=== PATIENT | female | born 1950 | race Caucasian/White ===

== ENCOUNTER 2017-11-04 09:36 | Outpatient (RCR) | payer MEDICARE, BC, SELFPAY ==
--- NOTE | 2017-11-04 09:30 | PTDS_ITS ---
Date: November 04, 2017 Referring: Carlos Salvador MD Diagnosis: L TKA, partial MCL repair 08/25/17 Treatment dates: 09/04/17 to 11/04/17 Subjective: History of Present Illness: Melita states that her knees have been feeling good. She has been trying to resume walking, stating she is able to go about a 10th of a mild before she gets a feeling of swelling in her knees. She feels as though her knees have come a long way and they really do not restrict her outside of long distance walking. She does have complaints of continued low back pain and increasing neck pain, which she will be meeting with her PCP about next week. She is now able to reciprocally manage stairs. Her standing time is limited by low back and neck pain. STANDARDIZED MEASURE: Her LEFS shows a 41% deficit. Objective: Posture: In static standing, the patient maintains wide base of support, no assistive device. Gait: Mild antalgia with contralateral trunk lean during swing phase. No assistive device for ambulation. Good heel toe mechanics. Palpation: Patient has well healed incisions over the anterior aspects of both knees. No increased temperature or edema noted. She does have tenderness to palpation over the lateral joint line bilaterally. ROM: Patient tolerated 0 to 130 degrees of flexion bilaterally without pain. Strength: Hip flexion is 5/5 bilaterally, quads are 5/5 bilaterally, hamstrings 4+/5 bilaterally. Ankle dorsiflexion is 5/5 bilaterally. Treatment: Today's session consisted of brief re-evaluation followed by review of HEP. We reviewed pelvic tilt exercises where the patient does require verbal and tactile cues for appropriate completion and avoidance of ame jim maneuver. Introduce hook lying marching for core stabilization and instructed patient in transverse abdominal activation throughout her close chain strengthening activities. She is also instructed in chin tuck exercises in seated position, again requiring verbal and tactile cues. Treatment Time: Therapeutic Procedure [id number]: 30 mins Assessment: Patient is a 67 year old female referred for PT services with diagnosis of L knee OA and MCL tear, now 9 weeks s/p L TKA with partial MCL repair. She is also about 6 months s/p R TKA. She has made excellent progress with her knees, now with full ROM and improved functional strength, however continues to have limitations in her mobility related to ongoing neck and back pain, which has been chronic issues for her. She has made significant gains and has met rehab goals, and is now appropriate for transition to an independent self management program with strong encouragement to continue with HEP with addition of core and cervical stabilization activities. G-Codes: The patient has continued limitations in the category of mobility: walking and moving around at discharge status of [id number] based on projected goal status of [id number] (these are based on LEFS score of 41% deficit) ST: Patient able to demonstrate community distance ambulation with least restrictive device (MET) 2: Household ambulation without assistive device (MET) LT: Reciprocal stair management. (MET) 2: Improve overall function as evidenced by LEFS score indicating less than 20 % deficit. (NOT MET) 3: Patient able to resume work duties (Continued difficulty with prolonged standing, although this is related to neck and back pain vs knee pain). Plan: Patient discharged with home exercise program. Patient is encouraged to follow up with PCP regarding ongoing neck pain. SS/dl *Dr. Salvador, please sign this discharge summary if you are in agreement with this plan. cc: Carlos Salvador MD
== END 2017-11-13 23:59 | disposition home or self-care (01) ==
LOC: PT 09:36
PROVIDERS: PCP Nurse Practitioner Family; Referring Provider Student in an Organized Health Care Education/Training Program; Visit Provider Student in an Organized Health Care Education/Training Program
DX: Z47.1 Aftercare following joint replacement surgery (principal); Z96.652 Presence of left artificial knee joint
CPT/HCPCS: 97110

== ENCOUNTER → 2017-11-18 12:57 | Outpatient (BNVA) | payer MEDICARE, BC, SELFPAY | PROVIDERS: PCP Nurse Practitioner Family; Visit Provider Student in an Organized Health Care Education/Training Program | DX: Z47.1 Aftercare following joint replacement surgery (principal); Z96.652 Presence of left artificial knee joint | CPT/HCPCS: NC ==

== ENCOUNTER 2017-12-22 18:21 | Outpatient (REF) | payer MEDICARE, BC, SELFPAY ==
[2017-12-22 22:17] LABS: TSH (W/Ref FT4) 0.68 uIU/mL (0.358-3.74); Vitamin B12 722 pg/mL (193-986)
== END 2017-12-22 18:41 ==
LOC: NCHCN 18:21
PROVIDERS: PCP Nurse Practitioner Family; Visit Provider Nurse Practitioner Family
DX: F41.8 Other specified anxiety disorders (principal)
CPT/HCPCS: 82607; 83735; 84443

== ENCOUNTER 2017-12-29 09:09 | Outpatient (CLI) | payer MEDICARE, BC, SELFPAY ==
[2017-12-29 14:38] LABS: HCT 39.2 % (36.0-46.0); HGB 12.7 g/dL (12.0-15.5); Mean Corp. HGB Concentration 32.4 g/dL (32.0-36.0); Mean Corpuscular Hemoglobin 29.1 pg (27.0-33.0); Mean Corpuscular Volume 89.7 fL (80-95); Mean Platelet Volume 11.8 fL (8.0-11.0); Platelet Count 309 x1000/uL (130-400); RBC 4.37 m/cumm (4.00-5.20); RBC Distribution Width 13.5 % (11.7-14.6); White Blood Cell Count 6.62 k/cumm (4.4-10.8)
[2017-12-29 15:20] LABS: ESR 27 MM/HR (0-30)
[2017-12-29 16:01] LABS: ALT 37 U/L (12-78); AST 26 U/L (15-37); Albumin 3.8 g/dL (3.4-5.0); Alkaline Phosphatase 93 U/L (46-116); Anion Gap 13.6 mmol/L (3-11); BUN 16 mg/dL (7-18); Bilirubin, Total 0.5 mg/dL (0.2-1.0); C-Reactive Protein 0.37 mg/dL (0.0-0.3); CO2 22.4 mmol/L (21.0-32.0); CREATININE 1.22 mg/dL (0.55-1.02); Chloride 105 mmol/L (98-107); Estimated GFR 43.83 (mL/min/1.73m2); Glucose 100 mg/dL (70-100); Potassium 4.4 mmol/L (3.5-5.1); Sodium 141 mmol/L (136-145); Total Protein 6.9 g/dL (6.4-8.2)
[2017-12-30 12:57] LABS: Calcium 9.5 mg/dL (8.5-10.1)
== END 2017-12-29 09:29 ==
PROVIDERS: PCP Nurse Practitioner Family; Visit Provider Internal Medicine Rheumatology
DX: M47.899 Other spondylosis, site unspecified (principal); Z79.1 Long term (current) use of non-steroidal anti-inflammatories (NSAID)
CPT/HCPCS: 80053; 85027; 85652; 86140

== ENCOUNTER 2018-02-01 10:10 | Outpatient (CLI) | payer MEDICARE, BC, SELFPAY ==
[2018-02-01 11:53] LABS: CREATININE 0.74 mg/dL (0.55-1.02)
== END 2018-02-01 10:30 ==
PROVIDERS: PCP Nurse Practitioner Family; Visit Provider Internal Medicine Rheumatology
DX: M47.899 Other spondylosis, site unspecified (principal); Z79.1 Long term (current) use of non-steroidal anti-inflammatories (NSAID)
CPT/HCPCS: 36415; 82565

== ENCOUNTER → 2018-02-17 12:45 | Outpatient (BNVA) | payer MEDICARE, BC, SELFPAY | PROVIDERS: PCP Nurse Practitioner Family; Referring Provider Nurse Practitioner Family; Visit Provider Student in an Organized Health Care Education/Training Program | DX: Z47.1 Aftercare following joint replacement surgery (principal); Z96.653 Presence of artificial knee joint, bilateral; M76.31 Iliotibial band syndrome, right leg; M76.32 Iliotibial band syndrome, left leg | CPT/HCPCS: 99212; 99213 ==

== ENCOUNTER 2018-03-25 01:20 | Outpatient (CLI) | payer MEDICARE, BC, SELFPAY ==
[2018-03-25 15:39] LABS: ALT 21 U/L (12-78); AST 18 U/L (15-37); Albumin 3.6 g/dL (3.4-5.0); Alkaline Phosphatase 93 U/L (46-116); Anion Gap 11.2 mmol/L (3-11); BUN 34 mg/dL (7-18); Bilirubin, Total 0.5 mg/dL (0.2-1.0); CO2 24.8 mmol/L (21.0-32.0); CREATININE 0.97 mg/dL (0.55-1.02); Chloride 106 mmol/L (98-107); Estimated GFR 56.94 (mL/min/1.73m2); Glucose 94 mg/dL (70-100); Sodium 142 mmol/L (136-145); Total Protein 7.1 g/dL (6.4-8.2)
[2018-03-25 15:45] LABS: Abs Immature Grans 0.01 k/cumm (0.0-0.09); Absolute Basophil Count 0.04 k/cumm (0.0-0.2); Absolute Eosinophil Count 0.38 k/cumm (0.0-0.7); Absolute Lymphocyte Count 2.19 k/cumm (1.2-3.4); Absolute Monocyte Count 0.68 k/cumm (0.11-0.7); Absolute Neutrophil Count 5.12 k/cumm (1.2-6.7); Basophils % 0.5; Eosinophils % 4.5; HCT 36.5 % (36.0-46.0); HGB 11.7 g/dL (12.0-15.5); Immature Grans % 0.1; Mean Corp. HGB Concentration 32.1 g/dL (32.0-36.0); Mean Corpuscular Hemoglobin 29.3 pg (27.0-33.0); Mean Corpuscular Volume 91.3 fL (80-95); Mean Platelet Volume 10.9 fL (8.0-11.0); Monocytes % 8.1; Neutrophils % 60.8; Platelet Count 256 x1000/uL (130-400); RBC Distribution Width 13.5 % (11.7-14.6); White Blood Cell Count 8.42 k/cumm (4.4-10.8)
== END 2018-03-25 01:40 ==
PROVIDERS: PCP Nurse Practitioner Family; Visit Provider Internal Medicine Medical Oncology
DX: C50.211 Malignant neoplasm of upper-inner quadrant of right female breast (principal); Z17.0 Estrogen receptor positive status [ER+]
CPT/HCPCS: 36415; 80053; 85025

== ENCOUNTER 2018-07-09 02:48 | Outpatient (CLI) | payer MEDICARE, BC, SELFPAY ==
[2018-07-09 08:37] LABS: HCT 38.1 % (36.0-46.0); HGB 12.1 g/dL (12.0-15.5); Mean Corp. HGB Concentration 31.8 g/dL (32.0-36.0); Mean Corpuscular Hemoglobin 29.2 pg (27.0-33.0); Mean Corpuscular Volume 91.8 fL (80-95); Mean Platelet Volume 10.3 fL (8.0-11.0); Platelet Count 207 x1000/uL (130-400); RBC 4.15 m/cumm (4.00-5.20); RBC Distribution Width 13.4 % (11.7-14.6); White Blood Cell Count 7.79 k/cumm (4.4-10.8)
[2018-07-09 08:49] LABS: ALT 22 U/L (12-78); AST 17 U/L (15-37); Albumin 3.4 g/dL (3.4-5.0); Alkaline Phosphatase 91 U/L (46-116); Anion Gap 10.9 mmol/L (3-11); BUN 17 mg/dL (7-18); Bilirubin, Total 0.4 mg/dL (0.2-1.0); C-Reactive Protein 5.82 mg/dL (0.0-0.3); CO2 24.1 mmol/L (21.0-32.0); CREATININE 0.69 mg/dL (0.55-1.02); Calcium 8.8 mg/dL (8.5-10.1); Chloride 106 mmol/L (98-107); Glucose 109 mg/dL (70-100); Potassium 4.1 mmol/L (3.5-5.1); Sodium 141 mmol/L (136-145); Total Protein 7.3 g/dL (6.4-8.2)
[2018-07-09 10:49] LABS: ESR 48 MM/HR (0-30)
== END 2018-07-09 03:08 ==
PROVIDERS: PCP Nurse Practitioner Family; Visit Provider Internal Medicine Rheumatology
DX: M47.899 Other spondylosis, site unspecified (principal); Z79.1 Long term (current) use of non-steroidal anti-inflammatories (NSAID)
CPT/HCPCS: 36415; 80053; 85027; 85652; 86140

== ENCOUNTER 2018-08-18 13:08 | Outpatient (CLI) | payer MEDICARE, BC, SELFPAY ==
--- NOTE | 2018-08-18 13:03 | DI.RAD_ITS ---
SYMPTOMS/DIAGNOSIS: BILATERAL TOTAL KNEE ARTHROPLASTY RIGHT KNEE: Two views. Comparison is 04/20/17. There are stable postsurgical changes of a right total knee replacement. No evidence of hardware failure is seen. The bones are intact. The soft tissues are unremarkable. LEFT KNEE: Two views. Comparison is 09/11/17. There are again seen postsurgical changes of a left total knee replacement. No evidence of hardware failure is seen. The bones are intact and normally mineralized. The soft tissues are grossly unremarkable.
== END 2018-08-18 13:28 ==
PROVIDERS: PCP Nurse Practitioner Family; Referring Provider Nurse Practitioner Family; Visit Provider Student in an Organized Health Care Education/Training Program
DX: M17.0 Bilateral primary osteoarthritis of knee (principal); Z96.653 Presence of artificial knee joint, bilateral
CPT/HCPCS: 99213; 73560

== ENCOUNTER 2018-11-09 16:42 | Outpatient (REF) | payer MEDICARE, BC, SELFPAY | END 2018-11-09 17:02 | LOC: NCHCN 16:42 | PROVIDERS: PCP Nurse Practitioner Family; Visit Provider Nurse Practitioner Family | DX: N39.0 Urinary tract infection, site not specified (principal) | CPT/HCPCS: 87077; 87086; 87186 ==

== ENCOUNTER 2018-11-19 03:47 | Outpatient (CLI) | payer MEDICARE, BC, SELFPAY ==
[2018-11-19 10:19] LABS: Abs Immature Grans 0.02 k/cumm (0.0-0.09); Absolute Basophil Count 0.04 k/cumm (0.0-0.2); Absolute Lymphocyte Count 1.74 k/cumm (1.2-3.4); Absolute Monocyte Count 0.37 k/cumm (0.11-0.7); Absolute Neutrophil Count 3.69 k/cumm (1.2-6.7); Basophils % 0.6; Eosinophils % 4.9; HCT 39.5 % (36.0-46.0); HGB 12.9 g/dL (12.0-15.5); Immature Grans % 0.3; Lymphocytes % 28.2; Mean Corp. HGB Concentration 32.7 g/dL (32.0-36.0); Mean Corpuscular Hemoglobin 29.6 pg (27.0-33.0); Mean Corpuscular Volume 90.6 fL (80-95); Mean Platelet Volume 10.4 fL (8.0-11.0); Platelet Count 277 x1000/uL (130-400); RBC 4.36 m/cumm (4.00-5.20); RBC Distribution Width 12.9 % (11.7-14.6); White Blood Cell Count 6.16 k/cumm (4.4-10.8)
[2018-11-19 11:16] LABS: C-Reactive Protein 0.47 mg/dL (0.0-0.3); ESR 26 mm/hr (0-30)
== END 2018-11-19 04:07 ==
PROVIDERS: PCP Nurse Practitioner Family; Visit Provider Internal Medicine
DX: M19.90 Unspecified osteoarthritis, unspecified site (principal); M06.022 Rheumatoid arthritis without rheumatoid factor, left elbow; M25.60 Stiffness of unspecified joint, not elsewhere classified; M54.5 Low back pain; G89.29 Other chronic pain; Z79.899 Other long term (current) drug therapy
CPT/HCPCS: 36415; 85652; 85025; 86140

== ENCOUNTER 2019-02-21 14:53 | Outpatient (REF) | payer MEDICARE, BC, SELFPAY ==
[2019-02-21 15:20] LABS: Abs Immature Grans 0.02 k/cumm (0.0-0.09); Absolute Basophil Count 0.04 k/cumm (0.0-0.2); Absolute Eosinophil Count 0.26 k/cumm (0.0-0.7); Absolute Lymphocyte Count 1.72 k/cumm (1.2-3.4); Absolute Monocyte Count 0.45 k/cumm (0.11-0.7); Absolute Neutrophil Count 5.34 k/cumm (1.2-6.7); Basophils % 0.5; Eosinophils % 3.3; HGB 13.3 g/dL (12.0-15.5); Immature Grans % 0.3; Mean Corp. HGB Concentration 32.4 g/dL (32.0-36.0); Mean Corpuscular Hemoglobin 29.7 pg (27.0-33.0); Mean Corpuscular Volume 91.5 fL (80-95); Mean Platelet Volume 11.4 fL (8.0-11.0); Monocytes % 5.7; Neutrophils % 68.2; Platelet Count 280 x1000/uL (130-400); RBC 4.48 m/cumm (4.00-5.20); RBC Distribution Width 12.7 % (11.7-14.6); White Blood Cell Count 7.83 k/cumm (4.4-10.8)
[2019-02-21 15:55] LABS: ALT 20 U/L (14-59); AST 16 U/L (15-37); Albumin 3.9 g/dL (3.4-5.0); Alkaline Phosphatase 106 U/L (46-116); Anion Gap 11.2 mmol/L (3-11); BUN 20 mg/dL (7-18); Bilirubin, Total 0.5 mg/dL (0.2-1.0); CO2 24.8 mmol/L (21.0-32.0); CREATININE 0.69 mg/dL (0.55-1.02); Calcium 9.5 mg/dL (8.5-10.1); Chloride 105 mmol/L (98-107); Glucose 95 mg/dL (74-106); Potassium 4.3 mmol/L (3.5-5.1); Sodium 141 mmol/L (136-145); Total Protein 7.2 g/dL (6.4-8.2); Vitamin B12 569 pg/mL (193-986)
[2019-02-21 15:56] LABS: Hemoglobin A1C 5.3 % (4.5-6.2)
[2019-02-21 16:02] LABS: C-Reactive Protein 0.44 mg/dL (0.0-0.3)
== END 2019-02-21 15:13 ==
LOC: NCHCN 14:53
PROVIDERS: PCP Nurse Practitioner Family; Visit Provider Nurse Practitioner Family
DX: R73.01 Impaired fasting glucose (principal); R00.2 Palpitations; K29.70 Gastritis, unspecified, without bleeding; F41.8 Other specified anxiety disorders; R79.89 Other specified abnormal findings of blood chemistry; I80.3 Phlebitis and thrombophlebitis of lower extremities, unspecified; M19.90 Unspecified osteoarthritis, unspecified site
CPT/HCPCS: 80053; 85652; 82607; 83036; 83735; 85025; 86140

== ENCOUNTER 2019-02-23 06:28 | Outpatient (CLI) | payer MEDICARE, BC, SELFPAY ==
[2019-02-23 18:10] LABS: ESR 32 mm/hr (0-30)
== END 2019-02-23 06:48 ==
PROVIDERS: PCP Nurse Practitioner Family; Visit Provider Nurse Practitioner Family
DX: M19.90 Unspecified osteoarthritis, unspecified site (principal); R00.2 Palpitations; I80.3 Phlebitis and thrombophlebitis of lower extremities, unspecified; R79.89 Other specified abnormal findings of blood chemistry; R73.01 Impaired fasting glucose
CPT/HCPCS: 36415; 85652

== ENCOUNTER 2019-08-24 00:59 | Outpatient (CLI) | payer MEDICARE, BC, SELFPAY ==
--- NOTE | 2019-08-24 11:07 | DI.RAD_ITS ---
EXAM: XR LUMBAR SPINE COMPLETE CLINICAL HISTORY: ACUTE BACK PAIN,M54.89. TECHNIQUE: 2D digital imaging was performed. COMPARISON: No exams were available for comparison FINDINGS: There are 5 lumbar type vertebral bodies. No spondylolysis or spondylolisthesis is seen. There is m ild disc space narrowing at L4-L5. Facet arthropathy is seen in throughout the lumbar spine. No acu te fractures or subluxations are present. Mild osteopenia. There are surgical clips in the right up per quadrant of the abdomen. IMPRESSION: [id number] degenerative changes in the lumbar spine. DATA REPOSITORY: RADIATION DOSE DELIVERED:
--- NOTE | 2019-08-24 11:08 | DI.RAD_ITS ---
EXAM: XR THORACIC SPINE COMPLETE CLINICAL HISTORY: ACUTE BACK PAIN, M54.89. TECHNIQUE: 2D digital imaging was performed. COMPARISON: No exams were available for comparison FINDINGS: No acute fractures or subluxations are seen in the thoracic spine. Degenerative changes are present throughout the thoracic spine characterized by disc space narrowing and endplate osteophytes. The silvia george appear mildly osteopenic. The paraspinal lines are unremarkable. Visualized lungs are clear. T here is a very mild S-type scoliotic curvature of the thoracic spine. IMPRESSION: Degenerative changes seen in the thoracic spine. DATA REPOSITORY: RADIATION DOSE DELIVERED:
== END 2019-08-24 01:19 ==
PROVIDERS: PCP Nurse Practitioner Family; Visit Provider Nurse Practitioner Family
DX: M54.89 Other dorsalgia (principal); M51.34 Other intervertebral disc degeneration, thoracic region; M47.814 Spondylosis without myelopathy or radiculopathy, thoracic region; M54.5 Low back pain; M51.36 Other intervertebral disc degeneration, lumbar region; M85.88 Other specified disorders of bone density and structure, other site
CPT/HCPCS: 72072; 72110

== ENCOUNTER 2019-10-10 16:42 | Outpatient (REF) | payer MEDICARE, BC, SELFPAY | END 2019-10-10 17:02 | LOC: NCHCN 16:42 | PROVIDERS: PCP Nurse Practitioner Family; Visit Provider Nurse Practitioner Family | DX: R30.0 Dysuria (principal) | CPT/HCPCS: 87077; 87086; 87186 ==

== ENCOUNTER 2020-02-20 16:21 | Outpatient (REF) | payer MEDICARE, BC, SELFPAY ==
[2020-02-20 21:58] LABS: Abs Immature Grans 0.01 10^3/uL (0.0-0.06); Absolute Basophil Count 0.05 10^3/uL (0.0-0.2); Absolute Eosinophil Count 0.28 10^3/uL (0.0-0.7); Absolute Lymphocyte Count 1.87 10^3/uL (1.2-3.4); Absolute Monocyte Count 0.36 10^3/uL (0.1-0.8); Absolute Neutrophil Count 5.13 10^3/uL (1.2-6.7); Basophils % 0.6; Eosinophils % 3.6; HCT 40.3 % (36.0-46.0); HGB 12.8 g/dL (11.2-15.7); Immature Grans % 0.1; Lymphocytes % 24.3; MCH 29.5 pg (27.0-33.0); MCHC 31.8 % (32.0-36.0); MCV 92.9 fL (80-95); Monocytes % 4.7; Neutrophils % 66.7; Nucleated RBC 0 %; Platelet Count 246 10^3/uL (130-400); RBC 4.34 10^6/uL (3.93-5.22); RDW 12.7 % (11.7-14.6); RDW-SD 43.5 fL
[2020-02-20 22:20] LABS: Hemoglobin A1C 5.2 % (<5.7)
[2020-02-20 22:46] LABS: ESR 19 mm/hr (0-30)
[2020-02-20 22:58] LABS: ALT 22 U/L (14-59); AST 21 U/L (15-37); Alkaline Phosphatase 104 U/L (46-116); Anion Gap 11.2 mmol/L (3-11); BUN 11 mg/dL (7-18); Bilirubin, Total 0.5 mg/dL (0.2-1.0); CO2 23.8 mmol/L (21.0-32.0); CREATININE 0.88 mg/dL (0.55-1.02); Calcium 9.7 mg/dL (8.5-10.1); Chloride 106 mmol/L (98-107); Glucose 85 mg/dL (74-106); Magnesium 2.1 mg/dL (1.8-2.4); Potassium 4.2 mmol/L (3.5-5.1); Sodium 141 mmol/L (136-145); Vitamin B12 788 pg/mL (193-986)
== END 2020-02-20 16:41 ==
LOC: NCHCN 16:21
PROVIDERS: PCP Nurse Practitioner Family; Visit Provider Nurse Practitioner Family
DX: R73.03 Prediabetes (principal); R00.2 Palpitations; K29.70 Gastritis, unspecified, without bleeding; M85.80 Other specified disorders of bone density and structure, unspecified site; G89.29 Other chronic pain; E66.9 Obesity, unspecified
CPT/HCPCS: 80053; 85652; 82607; 83036; 83735; 85025; 86140

== ENCOUNTER 2020-09-24 14:56 | Outpatient (REF) | payer MEDICARE, BC, SELFPAY ==
[2020-09-24 21:43] LABS: Abs Immature Grans 0.01 10^3/uL (0.0-0.06); Absolute Basophil Count 0.06 10^3/uL (0.0-0.2); Absolute Eosinophil Count 0.35 10^3/uL (0.0-0.7); Absolute Lymphocyte Count 2.14 10^3/uL (1.2-3.4); Absolute Neutrophil Count 3.74 10^3/uL (1.2-6.7); Basophils % 0.9; Eosinophils % 5.2; HCT 38.1 % (36.0-46.0); HGB 12.4 g/dL (11.2-15.7); Immature Grans % 0.1; Lymphocytes % 31.9; MCH 31.3 pg (27.0-33.0); MCHC 32.5 % (32.0-36.0); MCV 96.2 fL (80-95); MPV 12.4 fL (8.0-11.0); Neutrophils % 55.9; Nucleated RBC 0 %; Platelet Count 235 10^3/uL (130-400); RBC 3.96 10^6/uL (3.93-5.22); RDW 12.2 % (11.7-14.6); RDW-SD 43.8 fL
[2020-09-24 21:58] LABS: ALT 22 U/L (14-59); AST 21 U/L (15-37); Albumin 3.9 g/dL (3.4-5.0); Alkaline Phosphatase 94 U/L (46-116); Anion Gap 9.8 mmol/L (3-11); BUN 18 mg/dL (7-18); Bilirubin, Total 0.5 mg/dL (0.2-1.0); C-Reactive Protein 0.17 mg/dL (0.0-0.3); CO2 26.2 mmol/L (21.0-32.0); Calcium 9.5 mg/dL (8.5-10.1); Chloride 106 mmol/L (98-107); Estimated GFR 54.66 (mL/min/1.73m2); Glucose 88 mg/dL (74-106); Potassium 4.4 mmol/L (3.5-5.1); Sodium 142 mmol/L (136-145); Total Protein 6.9 g/dL (6.4-8.2)
[2020-09-24 22:01] LABS: Hemoglobin A1C 5.1 % (<5.7)
[2020-09-24 22:23] LABS: ESR 13 mm/hr (0-30)
== END 2020-09-24 14:57 | disposition home or self-care (01) ==
LOC: NCHCN 14:56
PROVIDERS: PCP Nurse Practitioner Family; Visit Provider Nurse Practitioner Family
DX: N81.10 Cystocele, unspecified (principal); R07.89 Other chest pain; F32.9 Major depressive disorder, single episode, unspecified; M19.90 Unspecified osteoarthritis, unspecified site; C50.919 Malignant neoplasm of unspecified site of unspecified female breast; M85.80 Other specified disorders of bone density and structure, unspecified site
CPT/HCPCS: 80053; 85652; 83036; 85025; 86140

== ENCOUNTER 2021-02-06 13:30 | Outpatient (CLI) | payer MEDICARE, BC, SELFPAY ==
--- NOTE | 2021-02-06 | DI.US_ITS ---
Exam(s) US LOWER EXTREMITY VENOUS LT EXAM: US LOWER EXTREMITY VENOUS LT CLINICAL HISTORY: THROMBOPHLEBITIS LT LEG, I80.3 TECHNIQUE: Ultrasound performed using standard protocol. COMPARISON: US ANDREAS from 08/25/2017 FINDINGS: Duplex venous ultrasound the left lower extremity was performed according to the usual protocol. Wanda p venous system is free of thrombus on compression study and 2D imaging. Note is made of thrombosis of the greater saphenous vein, remote from its origin in the distal thigh and calf. IMPRESSION: No evidence of DVT. No proximal greater saphenous vein thrombus. Thrombosis noted in distal greater saphenous vein. DATA REPOSITORY:
== END 2021-02-06 13:50 ==
PROVIDERS: PCP Nurse Practitioner Family; Visit Provider Nurse Practitioner Family
DX: I82.812 Embolism and thrombosis of superficial veins of left lower extremity (principal)
CPT/HCPCS: 93971

== ENCOUNTER 2021-02-14 01:09 | Outpatient (CLI) | payer MEDICARE, BC, SELFPAY ==
--- OUTSIDE RECORDS SUMMARY | 2021-02-14 01:11 | XMS_ITS ---
:1950 Author Care Team Providers Name Role Phone DR. ANGELINE BAIRD Primary Care Provider [phone] DR. ANGELINE BAIRD Referring Provider [phone] Allergies Code Code System Name Reaction Severity Status Onset 223 RxNorm Cephalexin ? ? Active ? 915984 RxNorm Dilaudid ? ? Active ? 0930023 RxNorm Latex Rash ? Active ? Penicillins ? ? Active ? Shellfish ? ? Active ? Derived Notes: deet - insect repellant Medications Name Status Start Date Stop Date ? ? acetaminophen Completed ? 04/14/2017 acetaminophen 325 mg tablet Completed ? 05/14 Take 2 tablets every 6 hours by oral route. Aspir-81 Active ? Not available Take once daily diclofenac potassium 50 mg tablet Completed ? 02/02/2018 Take 1 tablet by oral route. famotidine 20 mg tablet Active ? Not avai lable Take 1 tablet every day by oral route. gabapentin Active ? Not available 900mg po tid gabapentin 600 mg tablet Completed ? 019 Take 1 tablet 3 times a day by oral route. hydroxyzine HCl 25 mg tablet Active ? Not available Take 1 tablet 3 times a day by oral route. loratadine 10 mg tablet Active ? Not avai lable Take 1 tablet every day by oral route as needed. Multi Vitamin Active ? Not available oral once daily nabumetone 500 mg tablet Active ? Not taurus ilable Take 1 tablet twice a day by oral route with meals. Narcan Active ? Not available omeprazole 20 mg capsule,delayed release Completed ? 05/25/2017 Take 1 capsule every day by oral route. oxycodone Active ? Not available 2.5mg po q6 hr prn oxycodone 5 mg capsule Completed ? 9 Take 1 capsule every 6 hours by oral route. oxycodone-acetaminophen Completed ? 05/26/19 18 every 6 hours as needed pantoprazole 20 mg tablet,delayed release Active ? Not available Take 1 tablet every day by oral route. pantoprazole 40 mg tablet,delayed release Active ? Not available Take 1 tablet every day by oral route. sertraline 25 mg tablet Active ? Not avai lable Take 1 tablet every day by oral route. Tylenol Extra Strength 500 mg tablet Active ? Not available Take 1 tablet every 8 hours by oral route. Problems Name Status Onset Date Source ? Malignant Tumor of Breast Active 05/12/2017 ? Epigastric Hernia Active 05/12/2017 ? Arthritis Active 05/12/2017 ? Shoulder Pain Active 05/12/2017 ? History of Bilateral Mastectomy Active 05/12/2017 ? Ventricular Tachycardia Active ? ? Spinal Stenosis in Cervical Region Active ? ? Procedures Date Name Performed by ? ? Cholecystectomy Information not avai lable ? Total Knee Arthroplasty Information not available Notes: Right ? Bilateral Mastectomy Information not taurus ilable ? Wrist Surgery Information not avai lable Notes: left wrist Results Lab Results None recorded. Past Encounters None recorded. Social History Tobacco Smoking Status Former Smoker Notes: 019 Vaccine List None recorded. Plan of Care Reminders Provider Appointments None ? ? recorded. Lab None ? ? recorded. Referral None ? ? recorded. Procedures None ? ? recorded. Surgeries None ? ? recorded. Imaging None ? ? recorded. Vitals 04/26/2018 11:00AM SURGICAL F/U Height Weight BMI Blood Pressure 172.72 cm 119.29 kg 40 kg/m2 106/62 mm[Hg] 04/13/2018 10:15AM SURGICAL F/U Height Blood Pressure 172.72 cm 110/70 mm[Hg] 02/02/2018 11:30AM CONSULT Height Blood Pressure 172.72 cm 108/80 mm[Hg] 01/04/2018 11:30AM FOLLOW UP Height Blood Pressure 172.72 cm 98/62 mm[Hg] 05/25/2017 02:30PM FOLLOW UP Height Weight BMI Blood Pressure 172.72 cm 119.29 kg 40 kg/m2 98/60 mm[Hg]
--- NOTE | 2021-02-14 09:45 | DI.US_ITS ---
Exam(s) US LOWER EXTREMITY VENOUS LT EXAM: US LOWER EXTREMITY VENOUS LT CLINICAL HISTORY: THROMBOPHLEBITIS OF LEG I80.3 TECHNIQUE: Grayscale, color, and doppler imaging of the deep venous system of the lower extremity w as performed. COMPARISON: US US LOWER EXTREMITY VENOUS LT from 02/06/2021 FINDINGS: On the present study the amount of thrombus within the greater saphenous vein has increased extending up to the mid thigh level on the present study, but still over 5 cm from the saphenofemoral junction . With respect to the deep venous system, there is now intraluminal thrombus within the left popliteal vein, for distance of 2.3 cm. There does not appear to be intraluminal thrombus in posterior tibial veins in the calf nor above the level the knee. The ipsilateral saphenofemoral junction is patent. IMPRESSION: 1. There is now evidence of DVT in the left lower extremity, this involving the popliteal vein. Lydia t length at this level is approximately 2.3 cm.. 2. There is also further extension of intraluminal thrombus in the greater saphenous vein, presently propagating higher up but still over 5 cm from the saphenofemoral junction DATA REPOSITORY:
== END 2021-02-14 01:29 ==
PROVIDERS: PCP Nurse Practitioner Family; Visit Provider Nurse Practitioner Family
DX: I80.3 Phlebitis and thrombophlebitis of lower extremities, unspecified (principal)
CPT/HCPCS: 93971

== ENCOUNTER 2021-04-05 00:36 | Outpatient (CLI) | payer MEDICARE, BC, SELFPAY ==
--- NOTE | 2021-04-05 | DI.US_ITS ---
Exam(s) US CHEST EXAM: US CHEST CLINICAL HISTORY: SOFT TISSUE MASS,M79.9,BREAST CA,C50.919,H/O LT MAST TECHNIQUE: Ultrasound performed using standard protocol. COMPARISON: No exams were available for comparison FINDINGS: The patient is status post left mastectomy. The area of tenderness in the lateral chest wall posteri or to the surgical scar was scanned. Fatty tissue is noted. There is no evidence of a mass, cyst or subcutaneous edema. No discrete lipoma is visible. IMPRESSION: Fatty tissue in the lateral chest wall. No evidence of cyst or mass. DATA REPOSITORY:
== END 2021-04-05 00:56 ==
PROVIDERS: PCP Nurse Practitioner Family; Visit Provider Nurse Practitioner Family
DX: M79.89 Other specified soft tissue disorders (principal); Z85.3 Personal history of malignant neoplasm of breast; Z90.12 Acquired absence of left breast and nipple
CPT/HCPCS: 76604

== ENCOUNTER → 2021-10-18 00:30 | Outpatient (CLI) | payer MEDICARE, BC, SELFPAY ==
--- NOTE | 2021-10-18 | DI.RAD_ITS ---
Exam(s) XR LUMBAR SPINE COMPLETE EXAM: XR LUMBAR SPINE COMPLETE CLINICAL HISTORY: ACUTE BACK PAIN M54.89. TECHNIQUE: 2D digital imaging was performed of the lumbar spine. Six images were obtained. AP, lat eral, right oblique, left oblique and L5-S1 spot views were obtained. COMPARISON: CR XR LUMBAR SPINE COMPLETE from 08/24/2019 FINDINGS: BONES: No fracture or destructive lesion. Small endplate osteophytes at L4-5. mild degenerative agudelo es of the L5-S1 facet joints. There is a stable bone island in the L2 vertebral body. DISKS: Disc space narrowing is seen at T12-L1 and L1-L2. ALIGNMENT: Lumbar spinal alignment is within normal limits. No spondylolysis or spondylolisthesis. SOFT TISSUE: Surgical clips are seen in the right upper quadrant of the abdomen IMPRESSION: Mild degenerative changes in the lumbar spine. DATA REPOSITORY: RADIATION DOSE DELIVERED:
== END ==
PROVIDERS: PCP Nurse Practitioner Family; Visit Provider Nurse Practitioner Family
DX: M47.816 Spondylosis without myelopathy or radiculopathy, lumbar region (principal)
CPT/HCPCS: 72110

== ENCOUNTER 2021-12-19 18:22 | Outpatient (REF) | payer MEDICARE, BC, SELFPAY | END 2021-12-19 18:23 | disposition home or self-care (01) | LOC: NCHCN 18:22 | PROVIDERS: PCP Nurse Practitioner Family; Visit Provider Nurse Practitioner Family | DX: N39.0 Urinary tract infection, site not specified (principal) | CPT/HCPCS: 87086 ==

== ENCOUNTER 2022-01-16 10:32 | Emergency (ER) | payer MEDICARE, BC, SELFPAY ==
[2022-01-16 10:42] VITALS: BP 109/73; PULSE 70; RESP 18; TEMP 36.4; O2SAT 99
--- NOTE | 2022-01-16 11:15 | RT.EKG_ITS ---
APPROVED REPORT Exam: Resting ECG Reason for Exam: weakness Patient Location: E HR:50 bpm ECG Measurements Heart Rate 50 AXIS OK 180 P 26 QRSd 97 QRS -18 QT 454 T 31 QTc 414 Conclusion Sinus bradycardia...rate< 60 Normal [place] Normal Electrocardiogram
--- NOTE | 2022-01-16 11:15 | DI.CT_ITS ---
Exam(s) CT BRAIN NECK CTA EXAM: CT BRAIN NECK CTA CLINICAL HISTORY: dizziness, ataxia. TECHNIQUE: Imaging Protocol: Axial CT angiography was performed with multi-slice acquisition and mu lti-planar and/or 3D reconstructions. CONTRAST MATERIAL: Intravenous: Omnipaque 350 Contrast volume:structured data in ml COMPARISON: CT ABD PELVIS WITH CONTRAST from 04/28/2016 FINDINGS: CT angiography of the cervical cranial region was performed according to the usual protocol with intr avenous infusion of 85 cc of Omnipaque 350.. Initial noncontrast scanning of the head is unremarkable. Visualized lung apices are clear. Visualized portions of thoracic aorta and pulmonary arterial circul ation are unremarkable. There is no evidence of a cervical mass or adenopathy. The tracheal laryngeal structures appear intact. The common, internal, and external carotid arteries are within normal limits in the cervical region w ith no evidence of aneurysm, stenosis, or dissection. The vertebral arteries are unremarkable in appearance in the cervical region with no evidence of aneu rysm, stenosis, or dissection. Intracranial portions of the internal carotid arteries appear normal with no evidence of aneurysm, st enosis, or dissection. Intracranial vertebral arteries and basilar artery appear predominantly normal with no evidence of an eurysm, stenosis or dissection. There is a question of a less than 50 percent luminal diameter steno sis of the distal right vertebral artery, however this may be artifactual. No aneurysm identified in the region of the [id number]. The anterior, middle, and posterior cer ebral arteries and major branches appear intact with no evidence of aneurysm, stenosis, or dissection . No enhancing brain lesion identified on 5 minutes delayed images.. IMPRESSION: Possible less than 50 percent luminal diameter stenosis of the distal right vertebral artery, this fi nding may be artifactual. Otherwise negative CT angiography of the cervical cranial region. RADIATION DOSE DELIVERED: 2,046.35mGy.cmTotal DLP 2,046.35mGy.cm Total DLP !Error CTDIvol DATA REPOSITORY: All CT scans at this facility are submitted to the National Radiology Data Registry (NRDR) Dose Index Registry (DIR) with the [employer] ([employer]). RADIATION OPTIMIZATION: All CT scans at this facility use at least one of these dose optimization te chniques: automated exposure control; mA and/or kV adjustment per patient size (includes targeted exa ms where dose is matched to clinical indication); or iterative reconstruction.
--- NOTE | 2022-01-16 11:15 | DI.MRI_ITS ---
Exam(s) MR BRAIN WO EXAM: MR BRAIN WO CLINICAL HISTORY: dizziness, ataxia TECHNIQUE: Multiplanar multisequence MRI of the brain was performed. COMPARISON: No exams were available for comparison FINDINGS: The ventricular system is normal in appearance. There are scattered periventricular and subcortical areas of signal abnormality seen on T2 weighted i maging consistent with microvascular ischemic changes and sparing the corpus callosum . The orbital and temporal bone structures appear intact as does the pituitary. Diffusion weighted imaging shows no evidence of infarction. Susceptibility weighted imaging shows no evidence of intracranial hemorrhage. There is normal flow void in the [place] vasculature. IMPRESSION: No evidence of acute intracranial process. DATA REPOSITORY:
--- NOTE | 2022-01-16 11:24 | DI.RAD_ITS ---
Exam(s) XR CHEST 2V PA LATERAL EXAM: XR CHEST 2V PA LATERAL CLINICAL HISTORY: weakness TECHNIQUE: 2D digital imaging was performed. COMPARISON: CR ABD FLAT UPRIGHT PA CHEST from 04/28/2016 FINDINGS: The heart is not enlarged. The lungs are clear and well expanded. No pleural effusion seen. Mediastin al contours appear intact. IMPRESSION: Normal chest. RADIATION DOSE DELIVERED: Total DLP
[2022-01-16 11:47] LABS: Abs Immature Grans 0.02 10^3/uL (0.0-0.06); Absolute Basophil Count 0.06 10^3/uL (0.0-0.2); Absolute Eosinophil Count 0.32 10^3/uL (0.0-0.7); Absolute Lymphocyte Count 2.09 10^3/uL (1.2-3.4); Absolute Monocyte Count 0.41 10^3/uL (0.1-0.8); Absolute Neutrophil Count 2.98 10^3/uL (1.2-6.7); Eosinophils % 5.4; HCT 40.5 % (36.0-46.0); HGB 13.2 g/dL (11.2-15.7); Immature Grans % 0.3; Lymphocytes % 35.5; MCH 30.5 pg (27.0-33.0); MCHC 32.6 % (32.0-36.0); MCV 94 fL (80-95); MPV 10.1 fL (8.0-11.0); Neutrophils % 50.8; Platelet Count 258 10^3/uL (130-400); RBC 4.33 10^6/uL (3.93-5.22); RDW-SD 41.6 fL; WBC 5.88 10^3/uL (4.4-10.8)
[2022-01-16] MEDS: Normal Saline 1,000 ML 1000 ML IV (11:49)
[2022-01-16 11:54] VITALS: RESP 12
[2022-01-16 12:12] LABS: ALT 23 U/L (14-59); AST 23 U/L (15-37); Albumin 4.3 g/dL (3.4-5.0); Alkaline Phosphatase 107 U/L (46-116); Anion Gap 6.7 mmol/L (3-11); BUN 26 mg/dL (7-18); Bilirubin, Total 0.8 mg/dL (0.2-1.0); CO2 28.3 mmol/L (21.0-32.0); CREATININE 0.9 mg/dL (0.55-1.02); Calcium 9.6 mg/dL (8.5-10.1); Chloride 103 mmol/L (98-107); Estimated GFR 67.92 (mL/min/1.73m2); Glucose 92 mg/dL (74-106); Magnesium 2.2 mg/dL (1.8-2.4); Sodium 138 mmol/L (136-145); TSH (W/Ref FT4) 0.48 uIU/mL (0.36-3.74); Total Protein 8.2 g/dL (6.4-8.2); Troponin I < 50 ng/L (<or=60)
[2022-01-16 12:50] LABS: Bilirubin Negative (Negative); Blood Negative (Negative); Clarity Clear (Clear); Glucose Negative (Negative); Ketones Negative (Negative); Leukocyte Esterase Small (Negative); Nitrite Negative (Negative); Specific Gravity 1.015 (1.005-1.025); Urobilinogen 0.2 EU/dL (Up TO 0.2)
[2022-01-16 12:59] LABS: Bacteria Few HPF (Negative); C & S Indicated? No/Sq. Contamination; Casts Negative LPF (Negative); Crystals Negative HPF (Negative); Epithelial Cells Moderate HPF (Negative); Mucus Trace (Negative); Other Cells Rare Renal (Negative); RBC 0-2 HPF (0-2)
[2022-01-16] MEDS: Omnipaque 350 MG/ML 500 ML BTL-Imaging package 85 ML IJ (14:53)
--- NOTE | 2022-01-16 15:35 | ED.GENADUL_ITS ---
Discharge Plan Disposition Patient Disposition: HOME Condition: Stable Discharge Details Clinical Impression: Malaise, Dizziness Primary Care Provider: Laura De La Cruz ED Provider: Em Valero Home Meds and New Rx's Prescriptions: Continued sertraline 25 mg tablet 25 mg PO DAILY gabapentin 600 mg tablet 600 mg PO QAM Label Comments: 08/19/17 Pt states she now takes TID. PG nabumetone 500 mg tablet 500 mg PO BID multivitamin tablet 1 tab PO DAILY famotidine 20 mg tablet 40 mg PO DAILY Xarelto 20 mg tablet 20 mg PO DAILY Rx Instructions: must administer with evening meal Diclofenac Sodium [Diclofenac Sodium ER] 100 MG TAB.ER.24H 100 mg PO DAILY docusate sodium [Colace] 100 MG capsule 100 mg PO BID PRN PRN (Reason: Constipation) 0RF hydroxyzine HCl 25 MG tablet 12.5 mg PO TID PRN PRNQty: 0 0RF Label Comments: 04/01/17 Pt states she doesn't take unless experiencing very high anxiety. PG loratadine 10 MG tablet 10 mg PO PRN PRN acetaminophen [Mapap Extra Strength] 500 MG tablet 1,000 mg PO Q8H PRN PRNQty: 100 3RF pantoprazole 40 MG tablet,delayed release (DR/EC) 40 mg PO DAILY Qty: 30 0RF Discharge Instructions Instructions: Dizziness (ED) Additional Instructions: Follow-up with physical therapy tomorrow and ask them if they are able to for perform the Doc maneuver on you Meclizine as needed, do not drive for 8 hours after taking this medication Please follow-up with your primary care physician Use caution when going from sitting to standing and return earlier should you have new or worsening complaints at least 10 glasses of water daily Stand Alone Forms: Physical Therapy Referral Discharge Data Discharge Date/Time-TO BE ENTERED AT DEPARTURE: 01/16/22 15:49 Medical Decision Making Patient's diagnostic labs are reassuring That she is feeling symptomatically improved Her BUN is mildly elevated, perhaps secondary to mild dehydration Her urinalysis does not appear to be infected and is likely contaminated specimen She also has had a normal CTA head and neck and MRI of her brain, I suspect the cause of peripheral of her symptoms She is able to ambulate safely in the emergency department She will be referred to physical therapy for Doc maneuver and placed on meclizine for home Medical Records Medical records reviewed: Yes I reviewed the patient's medical records. Lab Data Lab results reviewed: Yes I reviewed the patient's lab results. HPI General Date/Time Provider Initiated Documentation: 01/16/22 10:56 . HPI Narrative: 71-year-old female presents with report of foggy sensation and difficulty walking. She states she awoke with the symptoms. She states she felt fine when she went to bed last evening. She has had some intermittent what she is describing as vertigo and states when she moves quickly she does report some spinning. She states she never felt quite this symptomatic with her vertigo in the past. She does not take any medications. In the past she has had Doc, this was many years ago and resolve her symptoms. She denies any speech or sensation change. Now she predominantly feels foggy . She states she feels like her brain is swimming per patient. She denies any falls or injuries. She denies any strength or sensation change. She did go into work today and was told to come to the emergency department for assessment Related Data Home Medications Medication Instructions Recorded Confirmed Diclofenac Sodium [Diclofenac 100 mg PO DAILY 02/17/17 10/07/21 Sodium ER] docusate sodium 100 mg capsule 100 mg PO BID PRN PRN Constipation 04/09/17 10/07/21 (Colace) hydroxyzine HCl 25 mg tablet 12.5 mg PO TID PRN PRN #0 tab-caps 04/09/17 10/07/21 loratadine 10 mg tablet 10 mg PO PRN PRN 08/19/17 10/07/21 acetaminophen 500 mg tablet (Mapap 1,000 mg PO Q8H PRN PRN #100 tabs 08/27/17 10/07/21 Extra Strength) pantoprazole 40 mg tablet,delayed 40 mg PO DAILY #30 tab-caps 08/27/17 10/07/21 release gabapentin 600 mg tablet 600 mg PO QAM 11/18/17 10/07/21 multivitamin 1 tab PO DAILY 02/17/18 10/07/21 nabumetone 500 mg tablet 500 mg PO BID 02/17/18 10/07/21 famotidine 20 mg tablet 40 mg PO DAILY 07/16/20 10/07/21 sertraline 25 mg tablet 25 mg PO DAILY 05/27/21 10/07/21 rivaroxaban 20 mg tablet (Xarelto) 20 mg PO DAILY 10/07/21 10/07/21 Previous Rx's Medication Instructions Recorded docusate sodium 100 mg capsule 100 mg PO BID PRN PRN Constipation 04/09/17 (Colace) hydroxyzine HCl 25 mg tablet 12.5 mg PO TID PRN PRN #0 tab-caps 04/09/17 acetaminophen 500 mg tablet (Mapap 1,000 mg PO Q8H PRN PRN #100 tabs 08/27/17 Extra Strength) pantoprazole 40 mg tablet,delayed 40 mg PO DAILY #30 tab-caps 08/27/17 release Allergies Allergy/AdvReac Type Severity Reaction Status Date / Time hydromorphone HCl Allergy Severe CHEST PAIN Verified 10/07/21 13:11 [From Dilaudid] Penicillins Allergy Severe Anaphylaxsi Verified 10/07/21 13:11 s shellfish derived Allergy Severe GI upset, Verified 10/07/21 13:11 severe cephalexin Allergy Intermediate ITCHING Verified 10/07/21 13:11 SWELLING latex AdvReac Intermediate Itching Verified 10/07/21 13:11 DEET AdvReac Intermediate Skin Rash Uncoded 10/07/21 13:11 General Stated Complaint: [facility] SOLEDAD: 3 Review of Systems All systems reviewed & are unremarkable except as noted in HPI and below PFSH All Active Problems (Updated 01/16/22 @ 15:26 by PARADISE Vanegas) Malaise (Acute) Dizziness (Acute) Lesion of right ear (Acute) Nasal septal perforation (Acute) Cystocele with prolapse (Acute) Stage III cystocele with stage II uterine prolapse. No rectocele. 06/16/2020 attempted multiple pessaries. Erythema chronica migrans, secondary (Acute) HLA-B27 antigen positive Thrombophlebitis (Acute) Left leg SVT (supraventricular tachycardia) (Chronic) Osteopenia (Acute) Depression (Chronic) Anxiety (Chronic) History of mastectomy (Chronic) Prophylactic mastectomy left breast History of total left knee replacement (TKR) (Chronic) 08/25/2017 History of total right knee replacement (TKR) (Chronic) 04/07/2017 IT band syndrome (Acute) Bilateral Cervical stenosis of spine (Acute 03/31/17) History of Surgical Procedure (Chronic) a. Right simple mastectomy with sentinel node biopsy. 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 History of bilateral knee replacement Previous back surgery Family History Mother Breast cancer Social History Smoking/Tobacco Use Status: Former Tobacco Use Smoking risk assessment performed?: Yes Alcohol Intake: never Drug use: Never Do you feel safe at home: Yes Do you feel safe in your relationship?: Yes Exam Const General: cooperative, comfortable and no acute distress HENMT Head: normal to inspection Mouth: oral mucosae normal Throat: uvula midline Eyes Pupils: PERRL Neck Other: no carotid bruit Resp Effort & Inspection: normal respiratory effort Auscultation: clear to auscultation bilaterally Cardio Rate: regular rate Rhythm: regular rhythm Skin General skin exam: no rashes or lesions noted Neuro General: patient alert and patient oriented x3 Cranial Nerves: CN's II-XI intact bilaterally and tongue midline Cognition: normal cognition Speech: speech normal Gait: normal gait Motor: no pronator drift Sensory Exam: no sensory deficits noted Other: neg fnf Course Vital Signs Vital signs: Vital Signs Temperature 36.4 C L 01/16/22 10:42 Pulse 70 01/16/22 10:42 Respiratory Rate 18 01/16/22 10:42 Blood Pressure 109/73 01/16/22 10:42 Pulse Oximetry 99 01/16/22 10:42 Temperature 36.4 C L 01/16/22 10:42 Temperature Source Temporal Artery Scan 01/16/22 10:42 Pulse 70 01/16/22 10:42 Respiratory Rate 12 01/16/22 11:54 Respiratory Effort 01/16/22 11:54 Respiratory Depth Normal 01/16/22 11:54 Respiratory Pattern Normal 01/16/22 11:54 Blood Pressure 109/73 01/16/22 10:42 Blood Pressure Position Sitting 01/16/22 10:42 Pulse Oximetry 99 01/16/22 10:42 Oxygen Delivery Method Room Air 01/16/22 10:42 Oxygen Flow Rate 0 01/16/22 10:42 Lab/Test Results Lab/Test Results: Laboratory Tests Range/Units 01/16/22 01/16/22 01/16/22 11:40 11:40 12:34 WBC (4.4-10.8) 10^3/uL 5.88 RBC (3.93-5.22) 10^6/uL 4.33 Hgb (11.2-15.7) g/dL 13.2 Hct (36.0-46.0) % 40.5 MCV (80-95) fL 94 MCH (27.0-33.0) pg 30.5 MCHC (32.0-36.0) % 32.6 RDW (11.7-14.6) % 12.0 Plt Count (130-400) 10^3/uL 258 MPV (8.0-11.0) fL 10.1 Immature Gran % 0.3 Neutrophils % 50.8 Lymphocytes % 35.5 Monocytes % 7.0 Eosinophils % 5.4 Basophils % 1.0 Nucleated RBC % (0.0-0.3) % 0.0 Absolute Neutrophils (1.2-6.7) 10^3/uL 2.98 Absolute Lymphocytes (1.2-3.4) 10^3/uL 2.09 Absolute Monocytes (0.1-0.8) 10^3/uL 0.41 Absolute Eosinophils (0.0-0.7) 10^3/uL 0.32 Absolute Basophils (0.0-0.2) 10^3/uL 0.06 Sodium (136-145) mmol/L 138 Potassium (3.5-5.1) mmol/L 4.0 Chloride (98-107) mmol/L 103 Carbon Dioxide (21.0-32.0) mmol/L 28.3 Anion Gap (3-11) mmol/L 6.7 BUN (7-18) mg/dL 26 H Creatinine (0.55-1.02) mg/dL 0.9 Est GFR (CKD-EPI 2020) (mL/min/1.73m2) 67.92 Glucose (74-106) mg/dL 92 Calcium (8.5-10.1) mg/dL 9.6 Magnesium (1.8-2.4) mg/dL 2.2 Total Bilirubin (0.2-1.0) mg/dL 0.8 AST (15-37) U/L 23 ALT (14-59) U/L 23 Alkaline Phosphatase (46-116) U/L 107 Troponin I (<or=60) ng/L < 50 Total Protein (6.4-8.2) g/dL 8.2 Albumin (3.4-5.0) g/dL 4.3 TSH (0.36-3.74) uIU/mL 0.48 Urine Color (Yellow) Yellow Urine Clarity (Clear) Clear Urine pH (5-8) 6.0 Ur Specific [place] (1.005-1.025) 1.015 Urine Protein (Negative) mg/dL Negative Urine Ketones (Negative) mg/dL Negative Urine Blood (Negative) Negative Urine Nitrite (Negative) Negative Urine Bilirubin (Negative) Negative Urine Urobilinogen (Up TO 0.2) EU/dL 0.2 Ur Leukocyte Esterase (Negative) Small H Urine RBC (0-2) HPF 0-2 Urine WBC (0-5) HPF 5-10 Ur Epithelial Cells (Negative) HPF Moderate Urine Crystals (Negative) HPF Negative Urine Bacteria (Negative) HPF Few Urine Casts (Negative) LPF Negative Urine Mucus (Negative) Trace Urine Other (Negative) Rare Renal Ur Culture Indicated? No/Sq. Contamination Urine Glucose (Negative) mg/dL Negative
[2022-01-16 15:36] VITALS: BP 133/73; PULSE 53; RESP 19; TEMP 36.4; O2SAT 95
[2022-01-16] MEDS: Meclizine 25 MG TAB PO (15:40)
== END 2022-01-16 15:49 | disposition home or self-care (01) ==
PROVIDERS: Emergency Medicine; Emergency Provider Physician Assistant; PCP Nurse Practitioner Family
DX: R42 Dizziness and giddiness (principal); R53.81 Other malaise
CPT/HCPCS: 36415; 70496; 70498; 80053; 93005; 96360; 99285; 70551; 71046; 81003; 81015; 83735; 84443; 84484; 85025; 93010; 99284

== ENCOUNTER 2022-07-07 13:19 | Outpatient (REF) | payer MEDICARE, BC, SELFPAY ==
[2022-07-07 20:55] LABS: Abs Immature Grans 0.02 10^3/uL (0.0-0.06); Absolute Basophil Count 0.08 10^3/uL (0.0-0.2); Absolute Eosinophil Count 0.35 10^3/uL (0.0-0.7); Absolute Lymphocyte Count 2.15 10^3/uL (1.2-3.4); Absolute Monocyte Count 0.47 10^3/uL (0.1-0.8); Absolute Neutrophil Count 3.97 10^3/uL (1.2-6.7); Basophils % 1.1; HCT 39.7 % (36.0-46.0); HGB 12.8 g/dL (11.2-15.7); Immature Grans % 0.3; Lymphocytes % 30.5; MCH 29.6 pg (27.0-33.0); MCHC 32.2 % (32.0-36.0); MCV 92 fL (80-95); MPV 10.8 fL (8.0-11.0); Monocytes % 6.7; Neutrophils % 56.4; Platelet Count 282 10^3/uL (130-400); RBC 4.32 10^6/uL (3.93-5.22); RDW 12.4 % (11.7-14.6); RDW-SD 41.3 fL; WBC 7.04 10^3/uL (4.4-10.8)
[2022-07-07 21:53] LABS: ALT 26 U/L (14-59); AST 20 U/L (15-37); Alkaline Phosphatase 114 U/L (46-116); Anion Gap 6.9 mmol/L (3-11); BUN 20 mg/dL (7-18); Bilirubin, Total 0.5 mg/dL (0.2-1.0); CO2 30.1 mmol/L (21.0-32.0); CREATININE 0.8 mg/dL (0.55-1.02); Calcium 9.2 mg/dL (8.5-10.1); Chloride 105 mmol/L (98-107); Estimated GFR 77.75 (mL/min/1.73m2); Ferritin 85 ng/mL (8-252); Glucose 78 mg/dL (74-106); Magnesium 2.2 mg/dL (1.8-2.4); Potassium 4.3 mmol/L (3.5-5.1); Sodium 142 mmol/L (136-145); TSH (W/Ref FT4) 0.48 uIU/mL (0.36-3.74); Total Protein 7.4 g/dL (6.4-8.2); Vitamin B12 760 pg/mL (193-986)
[2022-07-07 22:10] LABS: Iron 83 ug/dL (50-170); Total Iron Binding Capacity 309 ug/dL (250-450); Transferrin Sat 27 % (15-50)
== END 2022-07-07 13:20 | disposition home or self-care (01) ==
LOC: NCHCN 13:19
PROVIDERS: PCP Nurse Practitioner Family; Visit Provider Nurse Practitioner Family
DX: R07.89 Other chest pain (principal); F41.8 Other specified anxiety disorders; K29.70 Gastritis, unspecified, without bleeding; M25.50 Pain in unspecified joint; M19.90 Unspecified osteoarthritis, unspecified site; E66.9 Obesity, unspecified; R42 Dizziness and giddiness; H53.8 Other visual disturbances; Z79.899 Other long term (current) drug therapy
CPT/HCPCS: 80053; 82607; 82728; 83540; 83550; 83735; 84443; 85025

== ENCOUNTER 2022-07-10 10:33 | Outpatient (RCR) | payer MEDICARE, BC, SELFPAY ==
--- NOTE | 2022-07-10 10:30 | HOLTER_ITS ---
APPROVED REPORT Conclusion This is a 24-hour Holter monitor ordered for palpitations and dizziness Rhythm throughout is sinus with an average heart rate of 64. Minimum was 47, maximum 98 A total of 6 premature ventricular contractions were recorded There were rare atrial premature beats There is no atrial fibrillation, no high-grade AV block, no pauses greater than 3 seconds, no suprave ntricular tachycardia No patient symptoms were reported
== END 2022-07-13 23:59 | disposition home or self-care (01) ==
LOC: CARDOPNVT 10:33
PROVIDERS: PCP Nurse Practitioner Family; Visit Provider Nurse Practitioner Family
DX: R00.2 Palpitations (principal); R42 Dizziness and giddiness
CPT/HCPCS: 93225

== ENCOUNTER 2022-07-14 07:00 | Outpatient (RCR) | payer MEDICARE, BC, SELFPAY | END 2022-07-14 07:20 | LOC: CARDOPNVT 07:00 | PROVIDERS: PCP Nurse Practitioner Family; Visit Provider Nurse Practitioner Family | DX: R00.2 Palpitations (principal); R42 Dizziness and giddiness; I49.3 Ventricular premature depolarization | CPT/HCPCS: 93227; 93226 ==

== ENCOUNTER 2022-08-21 01:29 | Outpatient (CLI) | payer MEDICARE, BC, SELFPAY ==
--- NOTE | 2022-08-21 10:30 | DI.US_ITS ---
APPROVED REPORT EXAM: Comprehensive 2D, Doppler, and color-flow Echocardiogram Patient Location: Out-Patient Membership Director: Param Townsend RDMS, TUSHAR Indications: chest pain, heaviness, palpitations, SVC Other Information Study Quality: Adequate Conclusion Normal left ventricular wall thickness and chamber size. Ejection fraction is 55%. Wall motion is n ormal Normal right ventricular size and systolic function Both atria are normal in size There is no structural or hemodynamically significant valvular disease Mildly dilated aortic root and ascending aorta Wall motion Left Ventricle The left ventricle is normal size. The left ventricular systolic function is normal. The left ventric ular ejection fraction is within the normal range. There is normal left ventricular wall thickness. T here is normal LV segmental wall motion. There is no ventricular septal defect visualized. LVEF is 55 %. Right Ventricle The right ventricle is normal size. Right ventricular systolic function is grossly normal. The RVSP i s 24.3 mmHg. Atria The left atrium size is normal. The right atrium size is normal. The interatrial septum is intact wit h no evidence for an atrial septal defect. Aortic Valve The aortic valve is normal in structure. Aortic valve is trileaflet. There is no aortic valvular sten osis. No aortic regurgitation is present. Mitral Valve The mitral valve is normal in structure. No evidence of mitral valve stenosis. Trace mitral regurgita tion. Tricuspid Valve The tricuspid valve is normal in structure. There is no tricuspid valve stenosis. Mild tricuspid regu rgitation. Pulmonic Valve Pulmonic valve is not well visualized. There is no pulmonic valvular stenosis. Trivial pulmonic regur gitation. Great Vessels Aortic root is mildly dilated. The ascending aorta is mildly dilated. Aortic arch is normal in calib er. IVC is normal in size and collapses >50% with inspiration. Pericardium There is no pericardial effusion. 2D Dimensions IVSD d PLAX 0.81 cm F: 0.6-1.0 LV Vol A2C d MOD 160.5 mL LVPW d PLAX 0.81 cm F: 0.6 - 1.0 LV Vol A4C d MOD 127.2 mL LVID d PLAX 4.00 cm F: 3.8 - 5.2 LA vol/ BSA A4C s A-L 19.5 mL/m2 LVDs 3.10 cm F: 2.2 - 3.5 LA Area A4C s MOD 17.48 cm2 Ao Root d 3.61 cm F: 2.7 - 3.3 LV EF A4C MOD 48.0 % Ao Asc Diam d 3.31 cm F: 2.3 - 3.1 LV EF A2C MOD 48.2 % LV EF Teichholz 45.6 % LV EF Biplane MOD 48.9 % LVEF (Huynh's) 48.91 % F: 54 - 74 SV 72.72 mL LV Volume 107.41 mL F: 46 - 106 SV Index 32.36 mL/m2 LV Volume Index 47.73 mL/m2 F: 29 - 61 LV Vol Biplane MOD 148.7 mL FS 22.35 % M-Mode TAPSE 1.84 cm (M/F) >1.7 LV Diastology MV E' medial 0.082 (>0.07 m/s) E/A Ratio 1.4 LV E/e MED 11.70 (<14) MV E Vmax 0.96 (0.4-1.3 m/s) MV E' lateral 0.121 (>0.1 m/s) MV A Vmax 0.70 (0.4-1.3 m/s) LV E/e LAT 7.90 (<14) MV E/A Ratio 1.31 MV E/E' medial 11.72 MV E/E' lateral 7.95 Aortic Valve LVOT Area 3.30 cm2 AoV Area Vmax 2.78 cm2 LVOT Vmax 1.12 m/s AoV Area/ BSA (Vmax) 1.24 cm2/m2 LVOT Mean Landon. 0.87 m/s DEBORAH Mean Landon. 2.77 cm2 LVOT Peak Grad 5.0 mmHg DEBORAH Mean Landon. Index 1.23 cm2/m2 LVOT Mean Grad 3.2 mmHg LVOT VTI 0.288 m LVOT Diam s 2.05 cm AoV Vmax 1.33 m/s Velocity Ratio 0.84 AoV Mean Landon. 1.04 m/s AoV Peak Grad 7.1 mmHg LVOT SV 95.18 mL AoV Mean Grad 4.6 mmHg AoV VTI 0.335 m AoV Area VTI 2.84 cm2 AoV Area/ BSA (VTI) 1.27 cm/m2 Mitral Valve MV DT 235 (160-240 msec) MV PHT 68 msec MV Area PHT 3.23 cm2 MV VTI 0.407 m MV Area VTI 2.34 (4.0-6.0 cm2) Pulmonary Valve PV Vmax 0.88 (0.5-1.5 m/s) RVOT Peak Gr. 1.01 mmHg PV Peak Grad 3.1 mmHg RVOT Mean Gr. 0.50 mmHg PV Mean Grad 1.7 mmHg RVOT VTI 0.121 m PV VTI 0.186 m RVOT Vmax 0.50 m/s Tricuspid Valve TR Peak Grad 21.3 mmHg TR Vmax 2.31 m/s RA Pressure 3.00 mmHg RVSP (TR) 24.3 mmHg
== END 2022-08-21 01:49 ==
LOC: DI 01:29
PROVIDERS: PCP Nurse Practitioner Family; Visit Provider Nurse Practitioner Family
DX: R07.9 Chest pain, unspecified (principal)
CPT/HCPCS: 93306

== ENCOUNTER 2022-09-04 08:08 | Outpatient (CLI) | payer MEDICARE, BC, SELFPAY ==
--- NOTE | 2022-09-04 08:00 | RT.EKG_ITS ---
APPROVED REPORT Exam: Resting ECG Reason for Exam: palpitations Patient Location: O HR:75 bpm ECG Measurements Heart Rate [address] 173 P 23 QRSd 92 QRS -26 QT 386 T 33 QTc 432 Conclusion Sinus rhythm...normal P axis, V-rate 50- 99 Left anterior fascicular block Early transition
== END 2022-09-04 08:09 | disposition home or self-care (01) ==
LOC: DI.CARD 08:09
PROVIDERS: PCP Nurse Practitioner Family; Visit Provider Internal Medicine Cardiovascular Disease
DX: I47.1 Supraventricular tachycardia (principal); R00.2 Palpitations
CPT/HCPCS: 93010

== ENCOUNTER → 2022-09-04 10:54 | Outpatient (BNVA) | payer MEDICARE, BC, SELFPAY | PROVIDERS: PCP Nurse Practitioner Family; Referring Provider Nurse Practitioner Family; Visit Provider Internal Medicine Cardiovascular Disease | DX: R07.9 Chest pain, unspecified (principal); R06.02 Shortness of breath | CPT/HCPCS: 93005; 99203; 99213 ==

== ENCOUNTER 2022-09-29 02:56 | Outpatient (CLI) | payer MEDICARE, BC, SELFPAY ==
--- NOTE | 2022-09-29 13:23 | DI.RAD_ITS ---
Exam(s) XR SHOULDER RT COMPLETE 2+V EXAM: XR SHOULDER RT COMPLETE 2+V CLINICAL HISTORY: RT SHOULDER PAIN, M25.511. TECHNIQUE: 2D digital imaging was performed. Five views. COMPARISON: No exams were available for comparison FINDINGS: BONES: No acute fracture is present. No bony destructive lesion is seen. JOINTS: No dislocation present. Prominent spurring at the acromioclavicular joint. Joint space narr owing at the glenohumeral joint. Subchondral cysts noted in the glenoid. SOFT TISSUE: Normal. IMPRESSION: Degenerative changes of the AC joint and glenohumeral joint. DATA REPOSITORY: RADIATION DOSE DELIVERED:
== END 2022-09-29 03:16 ==
LOC: DI 02:56
PROVIDERS: PCP Nurse Practitioner Family; Visit Provider Family Medicine
DX: M19.012 Primary osteoarthritis, left shoulder (principal)
CPT/HCPCS: 73030

== ENCOUNTER → 2022-10-28 14:04 | Outpatient (BNVA) | payer MEDICARE, BC, SELFPAY | PROVIDERS: PCP Nurse Practitioner Family; Referring Provider Nurse Practitioner Family; Visit Provider Student in an Organized Health Care Education/Training Program | DX: M75.101 Unspecified rotator cuff tear or rupture of right shoulder, not specified as traumatic (principal) | CPT/HCPCS: 99203; 99213 ==

== ENCOUNTER → 2022-11-12 01:05 | Outpatient (CLI) | payer MEDICARE, BC, SELFPAY ==
--- NOTE | 2022-11-12 12:45 | DI.MRI_ITS ---
Exam(s) MR UPPER JOINT RT WO EXAM: MR UPPER JOINT RT WO CLINICAL HISTORY: ? ROTATOR CUFF TEAR, ARTHRITIS RT GLENOHUMERAL JOINT, M19.011. TECHNIQUE: Multiplanar multisequence MRI was performed. COMPARISON: Plain films 29 September 2022 FINDINGS: BONES: There is no fracture or contusion pattern. Subchondral cysts are noted in the glenoid. Spur ring at the inferior margin of the humeral head. A few tiny degenerative cysts are seen in the super ior humeral head. JOINTS:The acromioclavicular joint shows degenerative changes and prominent inferior spurring. The g lenohumeral joint shows a small amount of fluid. There are degenerative changes with cartilage thin hernan. TENDONS: Supraspinatus: Full-thickness tear with retraction to the level of the tip the acromion. Infraspinatus: Tendinosis. Subscapularis: Unremarkable. Teres Minor: Unremarkable. Biceps and [place]: Biceps tendon and anchor appear intact however appears medially subluxed superiorl y. GLENOID LABRUM: Unremarkable on this noncontrast examination. SOFT TISSUES: Unremarkable. OTHER: Large fluid collection versus cyst at the subcoracoid bursa. IMPRESSION: Full-thickness tear with retraction of the supraspinatus tendon. Subluxation medially of the superior biceps tendon. Large fluid collection versus synovial cyst or ganglion in the subcoracoid region. DATA REPOSITORY:
== END ==
PROVIDERS: PCP Nurse Practitioner Family; Visit Provider Student in an Organized Health Care Education/Training Program
DX: M75.120 Complete rotator cuff tear or rupture of unspecified shoulder, not specified as traumatic (principal); S43.081A Other subluxation of right shoulder joint, initial encounter; X58.XXXA Exposure to other specified factors, initial encounter
CPT/HCPCS: 73221

== ENCOUNTER → 2022-11-18 11:15 | Outpatient (BNVA) | payer MEDICARE, BC, SELFPAY | PROVIDERS: PCP Nurse Practitioner Family; Referring Provider Nurse Practitioner Family; Visit Provider Student in an Organized Health Care Education/Training Program | DX: M75.101 Unspecified rotator cuff tear or rupture of right shoulder, not specified as traumatic (principal); M75.21 Bicipital tendinitis, right shoulder; M19.011 Primary osteoarthritis, right shoulder | CPT/HCPCS: 99214 ==

== ENCOUNTER → 2022-12-02 02:36 | Outpatient (CLI) | payer MEDICARE, BC, SELFPAY ==
--- NOTE | 2022-12-02 07:22 | DI.CT_ITS ---
Exam(s) CT UPPER EXTREMITY RT WO EXAM: CT UPPER EXTREMITY RT WO CLINICAL HISTORY: SURGICAL PLANNING,arthritis rt glenohumeral joint,m19.011. TECHNIQUE: Imaging Protocol: Axial computed tomography images with coronal and sagittal reformatted images were created and reviewed. COMPARISON: CR XR SHOULDER RT COMPLETE 2+V from 09/29/2022 MR MR UPPER JOINT RT WO from 11/12/2022 FINDINGS: Bones: There are degenerative changes seen at both the acromioclavicular and glenohumeral joints jorge racterized by joint space narrowing and osteophytes. Bony alignment is satisfactory. No cellulitic or osteomyelitic changes are identified. No lytic or sclerotic lesions are identified. Soft Tissues: Tiny hypodensities in the thyroid gland. No follow-up is recommended. 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 RADIATION DOSE DELIVERED: 846.14mGy.cm Total DLP 846.14mGy.cm Total DLP DATA REPOSITORY: All CT scans at this facility are submitted to the National Radiology Data Registry (NRDR) Dose Index Registry (DIR) with the [employer] (A[employer]). RADIATION OPTIMIZATION: All CT scans at this facility use at least one of these dose optimization te chniques: automated exposure control; mA and/or kV adjustment per patient size (includes targeted exa ms where dose is matched to clinical indication); or iterative reconstruction.
== END ==
PROVIDERS: PCP Nurse Practitioner Family; Visit Provider Student in an Organized Health Care Education/Training Program
DX: M19.011 Primary osteoarthritis, right shoulder (principal)
CPT/HCPCS: 73200

== ENCOUNTER → 2022-12-10 12:52 | Outpatient (BNVA) | payer MEDICARE, BC, SELFPAY | PROVIDERS: PCP Nurse Practitioner Family; Referring Provider Nurse Practitioner Family; Visit Provider Student in an Organized Health Care Education/Training Program | DX: M19.011 Primary osteoarthritis, right shoulder (principal); M75.101 Unspecified rotator cuff tear or rupture of right shoulder, not specified as traumatic; M75.21 Bicipital tendinitis, right shoulder | CPT/HCPCS: 20610; 99214; J1030 ==

== ENCOUNTER → 2023-02-25 12:52 | Outpatient (BNVA) | payer MEDICARE, BC, SELFPAY | PROVIDERS: PCP Nurse Practitioner Family; Referring Provider Nurse Practitioner Family; Visit Provider Student in an Organized Health Care Education/Training Program | DX: M75.101 Unspecified rotator cuff tear or rupture of right shoulder, not specified as traumatic (principal); M75.21 Bicipital tendinitis, right shoulder; M19.011 Primary osteoarthritis, right shoulder | CPT/HCPCS: 20610; J1030 ==

== ENCOUNTER → 2023-05-20 01:53 | Outpatient (CLI) | payer MEDICARE, BC, SELFPAY ==
--- NOTE | 2023-05-20 13:00 | DI.RAD_ITS ---
Exam(s) XR LUMBAR SPINE COMPLETE EXAM: XR LUMBAR SPINE COMPLETE CLINICAL HISTORY: LOW BACK PAIN,M54.50. TECHNIQUE: 2D digital imaging was performed. Five views. COMPARISON: CR XR LUMBAR SPINE COMPLETE from 10/18/2021 FINDINGS: BONES: No fracture or destructive lesion. Vertebral body heights are maintained. facet hypertrophy greatest at L4-5 and L5-S1.. DISKS: Mild narrowing of the T12-L1, L1-2 disc spaces, not significantly changed. Rknd-gi-ndewuzwh n arrowing of the L4-5 and L5-S1 disc spaces, also unchanged. ALIGNMENT: Lumbar spinal alignment is within normal limits. SOFT TISSUE: Right upper quadrant surgical clips. IMPRESSION: Ydmo-gk-viourgdi degenerative changes, greatest at L4-5 and L5-S1. DATA REPOSITORY: RADIATION DOSE DELIVERED:
--- NOTE | 2023-05-20 13:01 | DI.RAD_ITS ---
Exam(s) XR HIP PELVIS ADULT BL EXAM: XR HIP PELVIS ADULT BL CLINICAL HISTORY: LOW BACK PAIN, M54.50. TECHNIQUE: 2D digital imaging was performed. Three views. COMPARISON: CR [facility] ILIAC JOINTS from 11/15/2015 US PELVIS TRANSVAG from 05/14/2016 FINDINGS: BONES: No acute fracture is present. No bony destructive lesion is seen. JOINTS: Moderate narrowing of both hip joint spaces. Mild acetabular spurring. Spurring from the ma rgin of the right femoral head. No dislocation present. Degenerative changes also noted at the SI joints and pubic symphysis as well as lower lumbar spine. SOFT TISSUE: Normal. IMPRESSION: Moderate degenerative changes of both hips. DATA REPOSITORY: RADIATION DOSE DELIVERED:
== END ==
PROVIDERS: PCP Nurse Practitioner Family; Visit Provider Nurse Practitioner Family
DX: M16.0 Bilateral primary osteoarthritis of hip (principal); M51.37 Other intervertebral disc degeneration, lumbosacral region
CPT/HCPCS: 73521; 72110

== ENCOUNTER → 2023-05-27 13:07 | Outpatient (BNVA) | payer MEDICARE, BC, SELFPAY | PROVIDERS: PCP Nurse Practitioner Family; Visit Provider Student in an Organized Health Care Education/Training Program | DX: M75.21 Bicipital tendinitis, right shoulder (principal); M19.011 Primary osteoarthritis, right shoulder; M75.101 Unspecified rotator cuff tear or rupture of right shoulder, not specified as traumatic | CPT/HCPCS: 99214 ==

== ENCOUNTER → 2023-06-10 13:46 | Outpatient (BNVA) | payer MEDICARE, BC, SELFPAY | PROVIDERS: PCP Nurse Practitioner Family; Referring Provider Nurse Practitioner Family | DX: M75.21 Bicipital tendinitis, right shoulder (principal); M75.101 Unspecified rotator cuff tear or rupture of right shoulder, not specified as traumatic; M19.011 Primary osteoarthritis, right shoulder | CPT/HCPCS: 99213 ==

== ENCOUNTER 2023-07-02 05:56 | Day surgery (SDC) | payer MEDICARE, BC, SELFPAY ==
[2023-07-02] VITALS (12 sets, daily range): BP systolic 98–128; BP diastolic 55–74; PULSE 52–65; RESP 16–21; TEMP 36.4–36.8; O2SAT 94–99; BMI 36.7
--- NOTE | 2023-07-02 06:42 | W.ANESVAS ---
Midline Placement Date Performed: 07/02/23 Procedure Time: 06:42 Requesting Provider: Randolph Delgado Procedure Location: Day Surgery Unit Sedation Given (Indicate Dose Given): No Sedation given Patient Mental Status: Awake Sterility: Hand Hygiene and Alcohol Laterality: Left Insertion Site: Basilic Midline Device: PowerGlide Pro 20G Catheter Length: 10 cm Midline Procedure Procedure: 1% Lidocaine to skin and subcutaneous tissue with 25g needle and Catheter placed without resistance Dressing: Tegaderm Applied and Statlock Applied Blood Return: Present Flushes: Easily Ultrasound: Sterile probe cover and gel used Ultrasound Image Saved?: No Number of Attempts (See previous attempts in note section): 1 Procedure Tolerated: No Complications Procedure Outcome: Successful Procedure Comment:: asked to place IV by DSU due to poor vein selection. Has clear visible veins on arms and hand, but minimal straight segments and appear to have a lot og valves. Large basilic on US in AC, midline catheter placed without issues. Performed By: Randolph Delgado
[2023-07-02] MEDS: Lactated Ringers 1,000 ML 30 ML IV (06:43)
[2023-07-02] MEDS: VANCOMYCIN/WATER (PEG) 1.5 GM/300 ML BAG IVPB (06:43)
--- NOTE | 2023-07-02 07:05 | W.ANESPRE ---
General Info Date of Service Date Performed: 07/02/23 Height: 5 ft 8 in Weight: 109.6 kg Body Mass Index (BMI): 36.7 Surgical Procedure: Operation Date: 07/02/23 07:40 Proposed Procedure Side Surgeon p Shoulder Reverse Total Arthroplasty w/Biceps Tenodesis Right Antonino Hurtado MD Meds Allergies and Home Medications Allergies Allergy/AdvReac Type Severity Reaction Status Date / Time hydromorphone HCl Allergy Severe CHEST PAIN Verified 07/02/23 06:15 [From Dilaudid] Penicillins Allergy Severe Anaphylaxsi Verified 07/02/23 06:15 s shellfish derived Allergy Severe GI upset, Verified 07/02/23 06:15 severe cephalexin Allergy Intermediate ITCHING Verified 07/02/23 06:15 SWELLING latex AdvReac Intermediate Itching Verified 07/02/23 06:15 DEET AdvReac Intermediate Skin Rash Uncoded 07/02/23 06:15 Home Medication Medication Instructions Recorded loratadine 10 mg tablet 10 mg PO PRN PRN 08/19/17 acetaminophen 500 mg tablet (Mapap 1,000 mg (2 x 500 mg) PO Q8H PRN 08/27/17 Extra Strength) PRN #100 tabs multivitamin 1 tab PO DAILY 02/17/18 nabumetone 500 mg tablet 500 mg PO BID 02/17/18 famotidine 20 mg tablet 40 mg PO DAILY 07/16/20 pantoprazole 40 mg tablet,delayed 40 mg PO DAILY #30 tab-caps 07/17/22 release rivaroxaban 20 mg tablet (Xarelto) 10 mg PO DAILY 07/17/22 meclizine 12.5 mg tablet 12.5 mg PO TID PRN 08/27/22 cholecalciferol (vitamin D3) 25 25 mcg PO DAILY 09/04/22 mcg (1,000 unit) tablet Current Visit Medications: Current Medications Generic Name Dose Route Start Last Admin Trade Name Freq PRN Reason Stop Dose Admin Ringer's Solution 1,000 mls @ 30 mls/hr 07/02/23 06:00 07/02/23 06:43 IV 07/31/23 23:59 30 mls/hr INFUSION DELANEY Administration Tranexamic Acid/Sodium Chloride 1,000 mg in 100 mls @ 600 mls/hr 07/02/23 06:00 IVPB 07/02/23 16:00 PREOP DELANEY Vancomycin/PEG/NADA/Lysine/Water 1.5 gm in 300 mls @ 200 mls/hr 07/02/23 06:00 07/02/23 06:43 Vancocin Injection IVPB 07/02/23 16:00 200 mls/hr PREOP DELANEY Administration Clindamycin Phosphate/Dextrose 900 mg in 50 mls @ 100 mls/hr 07/02/23 06:00 Cleocin In D5w IVPB 07/02/23 16:00 PREOP DELANEY IV Miscellaneous Supplies 1 each 07/02/23 06:00 Iv Access IV 07/31/23 23:59 DIRECTED DELANEY Sodium Chloride 0 ml 07/02/23 06:00 Normal Saline Flush 10 Ml Syr IV 07/31/23 23:59 PRN PRN Sodium Chloride 0 ml 07/02/23 06:00 Normal Saline 10 Ml Vial IJ 07/31/23 23:59 DIRECTED PRN Sterile Water 0 ml 07/02/23 06:00 Water,Injection,Sterile 10 Ml Vial IJ 07/31/23 23:59 DIRECTED PRN PFSH Active Problems Active Problems: Problem Status Onset Code Cat scratch of forearm S50.819A, W55.03XA Tendonitis of long head of biceps brachii of right shoulder M75.21 Rotator cuff tear, right M75.101 Arthritis of right glenohumeral joint M19.011 Sensorineural hearing loss (SNHL) of both ears H90.3 Benign positional vertigo H81.10 Obesity E66.9 Gastritis K29.70 Chest pain of unknown etiology R07.9 Palpitations R00.2 Lesion of right ear H93.91 Nasal septal perforation J34.89 Cystocele with prolapse N81.4 Erythema chronica migrans, 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 Thrombophlebitis I80.9 SVT (supraventricular tachycardia) I47.1 Osteopenia M85.80 Depression F32.9 Anxiety F41.9 History of mastectomy Z90.10 History of total left knee replacement (TKR) Z96.652 History of total right knee replacement (TKR) Z96.651 IT band syndrome M76.30 Cervical stenosis of spine 03/31/17 M48.02 Carcinoma of right breast C50.911 History of Surgical Procedure Z98.89 Medical History Medical History Chronic pain DVT of leg (deep venous thrombosis) LEFT LEG PER pcp PROB LIST rh Vertigo Breast cancer Surgical History Surgical History Previous back surgery disectomy 1983 History of bilateral knee replacement Fracture, Open Treatment (06/30/14) ORIF 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 Tobacco Smoking/Tobacco Use Status: Former Tobacco Use Alcohol Alcohol Intake: never Substance Use Substance use: Never Substance use type: does not use Vital Signs and Lab Results Vital Signs Most Recent Vital Signs in EMR: Most Recent Vital Signs Temp Pulse Resp BP Pulse Ox 36.6 C 64 16 127/74 96 07/02/23 06:23 07/02/23 06:23 07/02/23 06:23 07/02/23 06:23 07/02/23 06:23 Lab Results Blood Type / Crossmatch: No Data to Display Complete Blood Count: No Data to Display Complete Metabolic Panel: No Data to Display Liver Function Panel: No Data to Display Coagulation Panel: No Data to Display Cardiac Panel: No Data to Display Arterial Blood Gas: No Data to Display Venous Blood Gas: No Data to Display Pancreas Panel: No Data to Display Thyroid Panel: No Data to Display Infectious Disease: No Data to Display Blood Cultures: No Data to Display Toxicology Panel: No Data to Display Imaging and Studies Imaging and Studies Study information below may be from another EMR and interpreted by another provider. Please see original notes in EMR for more complete details. EKG Summary: 09/04/22 Conclusion Sinus rhythm...normal P axis, V-rate 50- 99 Left anterior fascicular block Early transition Stress Test Summary: 04/01/17 Impressions: Normal perfusion by [id number] Sestamibi Imaging. Summary: 1. Myocardial perfusion imaging: No myocardial perfusion defects noted. 2. The calculated left ventricular ejection fraction after stress: 58%. No left ventricular regional motion abnormality. Echocardiogram Summary: 08/21/22 Conclusion Normal left ventricular wall thickness and chamber size. Ejection fraction is 55%. Wall motion is normal Normal right ventricular size and systolic function Both atria are normal in size There is no structural or hemodynamically significant valvular disease Mildly dilated aortic root and ascending aorta Anesthesia Assessment and Plan Anesthesia History Personal History: No History of Anesthesia Complications Family History: No Family History of Anesthesia Complications Exercise Tolerance Exercise Tolerance: Metabolic Equivalents<4 Pertinent Negatives Pertinent Negatives: No Symptoms of GERD, No Major Cardiovascular Symptoms or Complaints, No Major Pulmonary Symptoms or Complaints and No History of CVA/TIA Cardiac & Pulmonary Exam Cardiac Exam: Normal S1/S2 Heart Sounds Pulmonary Exam: Clear Bilateral Breath Sounds Cardiac and Pulmonary Comment:: pt reports intermittent bouts of SOB and HUBBARD Implantable Cardiac Device Does patient have a Pacemaker or an ICD?: No Airway Exam Known Difficult Airway: No Mallampati Class: 3 Mouth Opening: Normal (> 3cm) Thyromental Distance: Less than 3 cm Neck Range of Motion: Full ROM Neck Circumference: Normal Teeth Condition: Loose or Chipped ASA Classification ASA Score: ASA 3 Emergency Case?: No NPO Status NPO Status: NPO Clears >2 hours, Solids >8 hours Anesthesia Plan Resuscitation Status: Full Code Anesthesia Technique: General Anesthesia Airway Planned: Endotracheal Tube Pain Management: Surgeon and patient request nerve block Monitors Used: Standard Monitors and SedLine Preoperative Comments:: discussed difficulties with pt neck and back pain at baseline and discussed how we will try to optimize her positioning for comfort during the case but the risk of nerve issues related to positioning is still there. pt verbalized understanding
--- NOTE | 2023-07-02 07:15 | PDOC.DSDIS_ITS ---
Date of service: 07/02/23 Time of Service: 13:00 Discharge Plan Disposition Patient Disposition: Home Condition: Stable Discharge Details Attending Provider: Antonino Hurtado Primary Care Provider: Laura De La Cruz Home Meds and New Rx's Prescriptions: New naproxen 250 mg tablet 250 mg PO BID PRN (Reason: Moderate pain) Qty: 30 0RF tramadol 50 mg tablet 50 mg PO Q8H PRNQty: 12 0RF Continued meclizine 12.5 mg tablet 12.5 mg PO TID PRN cholecalciferol (vitamin D3) 25 mcg (1,000 unit) tablet 25 mcg PO DAILY nabumetone 500 mg tablet 500 mg PO BID multivitamin tablet 1 tab PO DAILY famotidine 20 mg tablet 40 mg PO DAILY Xarelto 20 mg tablet 10 mg PO DAILY Patient Comments: 07/16/22 per PCP med list RH Rx Instructions: must administer with evening meal pantoprazole 40 mg tablet,delayed release (DR/EC) 40 mg PO DAILY Qty: 30 0RF loratadine 10 MG tablet 10 mg PO PRN PRN acetaminophen [Mapap Extra Strength] 500 MG tablet 1,000 mg PO Q8H PRN PRNQty: 100 3RF Discharge Instructions Additional Instructions: Surgery: Right reverse total shoulder arthroplasty (constrained liner) with biceps tenodesis Activity: Do not lift anything heavier than a coffee. You should keep your arm at your side in a relatively neutral position at all times except for gentle range of motion exercises, physical therapy, and essential activities. You should use the sling whenever you are out of the house. You may have to adjust the abduction pillow or remove it for comfort. At home it is best to remove the sling and rest the arm on a pillow at your side or support the operative side with your other hand. A physical therapy prescription will be sent electronically to start in about 3 weeks. STANDARD Reverse TSA Protocol. Prescriptions: Resume home Xarelto medication tomorrow morning Naproxen 250 mg take 1 every 12 hours with a meal as needed for moderate pain Tramadol 50 mg take 1 every 8 hours as needed for severe pain You may use [id number] Tylenol (acetaminophen) as needed for mild pain. These pain medications may be taken all at once or in different combinations as needed. Also, recommend Colace (docusate) as a stool softener as surgery and pain medicine cause constipation. You may try [id number] diphenhydramine (Benadryl) 25-50 mg nightly as a sleep aid Dressings: Leave dressing in place until follow-up. Keep clean and dry at all times. No showers please. Follow-up: 10-[address] Hurtado You may take off the leg compression stockings this evening at home. You may also leave them on a few days longer if you have a history of leg swelling or edema. Please call the office during business hours with any questions or conc erns. Let us know right away if you develop any redness, drainage, fevers, chest pain, or trouble breathing. Do not drink alcohol or drive for at least 24 hours after anesthesia. Stand Alone Forms: Anesthesia Discharge Inst., [place].Nerve Block Instructions, Nalini Martin ([facility]) Discharge Orders Discharge Orders: Discharge Order (Routine); Ordered 07/02/23 Ordered By: Norman Romero Discharge Data Discharge Date/Time-TO BE ENTERED AT DEPARTURE: 07/02/23 13:26 DS: Diagnosis Discharge Diagnosis (1) Arthritis of right glenohumeral joint: Status: Acute
--- NOTE | 2023-07-02 07:18 | ROE_ITS ---
Date of service: 07/02/23 Time of Service: 07:30 Operative Note Operative Note DATE OF PROCEDURE: 07/02/23 PRE-OP DIAGNOSIS: Right: 1. Rotator cuff arthropathy 2. Long head of the biceps tendinopathy POST-OP DIAGNOSIS: same PROCEDURE: Right: 1. Reverse total shoulder arthroplasty, CPT # 32541 2. Open biceps tenodesis, CPT # 58079 The bindery assistant was medically required as this procedure involves retraction, protection of neurovascular structures, and manipulation of multiple instruments and implants at the same time, which cannot be done without a skilled bindery assistant. SURGEON: Antonino Hurtado STRUCTURES TECHNICIAN: Norman Romero ANESTHESIA TYPE: Local By Surgeon, General LMA/ETT and Primary Nerve Block Refer to Anesthesia Record ESTIMATED BLOOD LOSS: 50 COMPLICATIONS: None Patient was transported to: PACU Patient's condition: stable Implants: [employer] modular glenoid system baseplate 24 mm with 10 degree full augment [employer] modular glenoid system central post 25 mm [employer] modular glenoid system peripheral locking screws 36 mm inferior, 32 mm superior, 16 mm posterior, 16 mm anterior [employer] modular glenoid system glenosphere 39+4 mm lateralized [employer] humeral stem 135 degrees size 9 [employer] suture cup size 39 posterior offset [employer] humeral insert size 39+6 mm constrained Indications: Please see complete medical record for details. Findings: Significant long head biceps tenosynovitis, moderate?grade tearing subscapularis, and deficient supraspinatus. Moderate glenohumeral cartilage loss. Procedure Description: In the operating room, general anesthesia was induced. A Lozoya catheter was placed due to patient concerns about postoperative urinary incontinence. The patient was positioned beachchair on the operating room table. The head and neck were very carefully positioned given the preoperative condition. All bony prominences were well-padded. Preoperative antibiotics were administered, which were vancomycin and clindamycin given patient allergies to penicillins and cephalosporins. The shoulder was prepped and draped in the usual sterile fashion for shoulder arthroplasty. The correct patient, procedure, and side of the procedure were all verified prior to incision. The deltopectoral approach was preinjected with 30 cc 0.25% bupivacaine containing epinephrine and taken to the anterior shoulder. Care was taken to bluntly dissect the interval between the deltoid and pectoralis major muscles and to identify the cephalic vein within its fat stripe. The the vein was mobilized laterally. Subdeltoid space and conjoined tendon were freed of adhesions. The long head of the biceps tendon was identified just lateral to the lesser tuberosity. The uppermost margin of the pectoralis major tendon was released from the proximal humerus. The long head of the biceps tendon was tenodesed in situ using SutureTape in a [id number] fashion securing it sup erior margin the pectoralis major tendon. The biceps tendon was amputated and followed proximally to identify the rotator interval. A subscapularis tenotomy was done. The greater tuberosity was debrided of some lateral supraspinatus remnant and the leading edge of the infraspinatus was debrided to a stable margin. Appropriate coagulation was achieved especially interiorly. The anatomic neck was cut using an oscillating saw with the humeral head bone brought back table in case there was a need for future bone grafting. The proximal humerus was delivered from the wound with adduction and external rotation. The proximal humeral protection plate was used to provisionally confirm suture cup and glenosphere size. Reamers were started appropriately posterior to the bicipital groove taking care to maintain in line approach with the humeral canal. Sequential reaming was done from size 5 up to size 8. Next, the broaches were sequentially used to open the proximal humerus starting with a size 5 and going up to size 9 and sunk to the appropriate depth while maintaining approximately 25 degrees retroversion matching patient anatomy. There was good metaphyseal fit and rotational control of the proximal humerus with this size. The posterior offset guide was used to ream for the suture cup. Attention was then turned to the glenoid and retractors were placed and a circumferential release performed using the long head of the biceps remnant to remove soft tissue about the glenoid rim. Care was taken inferiorly to work on bone only between 5 and 7:00 o'clock and bluntly elevate tissues inferiorly. The VIP guide was placed on the glenoid and used to confirm placement and trajectory of the central guidepin. The guidepin was inserted and advanced just through the far cortex ensuring adequate central fixation length. The glenoid was prepared according to electrician supervisor airplane specifications for a augmented full wedge baseplate and central post. The baseplate was impacted onto the glenoid surface. The locking guide was then used to drill and place appropriately lengthed inferior, superior, anterior, and posterior screws. The [id number] reamer was used to confirm adequate peripheral reaming. The glenosphere was applied with the unit nurse and then impacted to engage the Alvarado taper. It was then locked with appropriate countersinking of the setscrew. The glenosphere was inspected and found to have good fit, appropriate positioning, and no soft tissue or bony impingement. Attention was then turned back to the proximal humerus. The humeral trial cup was connected. Trialing was commenced with +3 mm liner. The shoulder was reduced and taken through range of motion. Trial components were built up to +6 mm liner to achieve good stability and appropriate tension on the deltoid and conjoined tension. The trial components were removed from the proximal humerus. The wound was copiously irrigated with normal saline. The the proximal humeral stem and sut ure cup were assembled and brought over the proximal humerus. A small amount of vancomycin powder was distributed in the proximal humerus. The humeral component and suture cup were impacted into place, and sat at the same position as the trial. The final +6 mm liner, constrained chosen due to deficient rotator cuff and need for immediate active use was then connected, and range of motion, stability, and tension confirmed. The shoulder was copiously irrigated with Betadine and normal saline. Vancomycin powder to complete an additional 500 mg was distributed deeply about the shoulder and through subcutaneous tissues. The deltopectoral interval was approximated with 2-0 Monocryl. The cephalic vein was buried intact. Subcutaneous tissue was irrigated then closed using 2-0 Monocryl in a buried interrupted fashion. Skin was closed using 3-0 Monocryl in a buried subcuticular fashion. Skin glue was applied to the incision. A silver impregnated bandage was placed over the incision. The extremity was placed into a shoulder immobilizer. The patient awoke from anesthesia without complication and was taken to the recovery room in stable condition.
[2023-07-02] MEDS: TRANEXAMIC ACID/SOD. CHL. 1,000 MG/100 ML BAG 600 MG IVPB (07:59)
--- NOTE | 2023-07-02 08:17 | W.ANESNERVE ---
Nerve Block Single Injection Procedure Date and Time Date Performed: 07/02/23 Procedure Start: 07:14 Location Where Procedure Performed Procedure Location: Day Surgery Unit Reason Performed: Postoperative Analgesia Requesting Provider: Antonino Hurtado Timeout Performed Timeout Performed: Yes Monitoring Used ECG, Blood Pressure, SpO2 and See EMR for corresponding vital signs Sterility Sterility: Hand Hygiene, Surgical Cap, Surgical Mask, Sterile Gloves and Chlorhexidine Sedation Given During Procedure Sedation Given (Indicate Dose Given): Versed IV Dose:: 2mg Patient Mental Status Patient Mental Status: Sedate with meaningful communication Nerve Block 1st Nerve Block: Laterality: Right Block Type: Interscalene Ultrasound Image Saved?: Yes Needle / Catheter Used: 100mm SonoPlex II Local Anesthetic Bolus (Indicate Dose Given): Lidocaine used for local infiltration of skin, Injected in 3-5ml increments after negative blood aspiration, Bupivacaine 0.5% Dose:: 10mL and Exparel Dose:: 10mL Additives (Indicate Dose Given): None Ultrasound: Sterile probe cover and gel used Nerve Stimulator: Supplement to Ultrasound use Paresthesia: None Procedure Tolerated: No Complications and Patient tolerated well Procedure Outcome: Successful Performed By: Bell Gomez Supervised By: Ella Paredes
[2023-07-02] MEDS: Droperidol 5 MG/2 ML VIAL 0.625 MG IVP (11:00)
--- NOTE | 2023-07-02 11:00 | DI.RAD_ITS ---
Exam(s) XR SHOULDER RT COMPLETE 2+V EXAM: XR SHOULDER RT COMPLETE 2+V CLINICAL HISTORY: Shoulder Arthritis. TECHNIQUE: 2D digital imaging was performed of the right shoulder. Three images were obtained. Gra umesh and Y views were obtained. COMPARISON: CR XR SHOULDER RT COMPLETE 2+V from 09/29/[address] UPPER EXTREMITY RT WO from 12/02/2022 FINDINGS: The patient is now status post right total reverse shoulder replacement. The orthopedic hardware hardy ears in good position. The bones are intact and normally mineralized. There are degenerative change s seen at the acromioclavicular joint. Postsurgical changes are seen in the soft tissues. The visua lized lungs are clear. IMPRESSION: Status post right total reverse shoulder replacement. DATA REPOSITORY: RADIATION DOSE DELIVERED:
--- NOTE | 2023-07-02 12:16 | W.ANESPOSTOP ---
Postoperative Evaluation Date, Time and Location Date Performed: 07/02/23 Time Performed: 12:16 Patient Location: Day Surgery Unit Vital Signs Most Recent Imported Vital Signs: Most Recent Vital Signs Temp Pulse Resp BP Pulse Ox 36.6 C 59 L 18 106/64 94 07/02/23 11:43 07/02/23 11:43 07/02/23 11:43 07/02/23 11:43 07/02/23 11:43 Pain Score Most Recent Pain Score: Most Recent Pain Score Pain Level 0 07/02/23 11:43 Assessment Mental Status: Awake (Alert & Oriented to Patient Baseline) Airway and Respiratory Function: Patent airway with normal (patient baseline) respiratory exam Cardiovascular Function: Hemodynamically Stable Hydration Status: Adequately Hydrated Nausea & Vomiting: No Nausea or Vomiting Pain: Pt. Denies Any Pain Peripheral Nerve Block: Regional nerve block not resolved at time of post operative discharge
== END 2023-07-02 13:26 | disposition home or self-care (01) ==
PROVIDERS: PCP Nurse Practitioner Family; Visit Provider Student in an Organized Health Care Education/Training Program
PROC: (CPT 23472; principal; 2023-07-02 07:30)
DX: M19.011 Primary osteoarthritis, right shoulder (principal); M75.101 Unspecified rotator cuff tear or rupture of right shoulder, not specified as traumatic; M75.21 Bicipital tendinitis, right shoulder
CPT/HCPCS: 23472; C1713; 76942; 73030; C9290; J0131; J0665; J0737; J1100; J1596; J1790; J1885; J2001; J2250; J2371; J2405; J2704; J3372

== ENCOUNTER 2023-07-15 15:30 | Outpatient (CLI) | payer MEDICARE, BC, SELFPAY ==
--- NOTE | 2023-07-15 10:30 | DI.RAD_ITS ---
Exam(s) XR SHOULDER RT COMPLETE 2+V EXAM: XR SHOULDER RT COMPLETE 2+V CLINICAL HISTORY: 1st post op S/P R REVERSE TSA. TECHNIQUE: 2D digital imaging was performed. COMPARISON: CR XR SHOULDER RT COMPLETE 2+V from 07/02/2023 FINDINGS: Two views. Satisfactory position alignment of the components of the recently placed reverse prosthesis. No frac ture or loosening evident. IMPRESSION: Stable satisfactory appearance DATA REPOSITORY: RADIATION DOSE DELIVERED:
== END 2023-07-15 15:31 | disposition home or self-care (01) ==
LOC: DIORS 15:31
PROVIDERS: PCP Nurse Practitioner Family; Visit Provider Physician Assistant
DX: Z96.611 Presence of right artificial shoulder joint (principal); M16.12 Unilateral primary osteoarthritis, left hip; M70.62 Trochanteric bursitis, left hip; M76.32 Iliotibial band syndrome, left leg; M46.1 Sacroiliitis, not elsewhere classified; Z47.1 Aftercare following joint replacement surgery
CPT/HCPCS: 99213; 73030

== ENCOUNTER 2023-08-26 14:51 | Outpatient (CLI) | payer MEDICARE, BC, SELFPAY ==
--- NOTE | 2023-08-26 10:57 | DI.RAD_ITS ---
Exam(s) XR SHOULDER RT COMPLETE 2+V EXAM: XR SHOULDER RT COMPLETE 2+V CLINICAL HISTORY: F/U RIGHT RTSA. TECHNIQUE: 2D digital imaging was performed. COMPARISON: CR XR SHOULDER RT COMPLETE 2+V from 07/15/2023 FINDINGS: Two views. There is stable position alignment of the components of the reverse prosthesis. No evidence of fract ure or loosening. IMPRESSION: Stable satisfactory appearance DATA REPOSITORY: RADIATION DOSE DELIVERED:
== END 2023-08-26 14:52 | disposition home or self-care (01) ==
LOC: DIORS 14:51
PROVIDERS: PCP Nurse Practitioner Family; Referring Provider Nurse Practitioner Family; Visit Provider Student in an Organized Health Care Education/Training Program
DX: Z47.1 Aftercare following joint replacement surgery (principal); Z96.611 Presence of right artificial shoulder joint
CPT/HCPCS: 73030

== ENCOUNTER 2023-09-18 15:48 | Outpatient (REF) | payer MEDICARE, BC, SELFPAY ==
[2023-09-18 14:48] LABS: Anion Gap 9.4 mmol/L (3-11); BUN 25 mg/dL (7-18); CO2 26.6 mmol/L (21.0-32.0); CREATININE 0.7 mg/dL (0.55-1.02); Calcium 9.5 mg/dL (8.5-10.1); Calculated LDL 79 mg/dL (<100); Chloride 107 mmol/L (98-107); Cholesterol 161 mg/dL (<200); Glucose 78 mg/dL (74-106); HDL Cholesterol 57 mg/dL (40-60); Potassium 4.4 mmol/L (3.5-5.1); Sodium 143 mmol/L (136-145); Triglyceride 125 mg/dL (<150)
== END 2023-09-18 15:49 | disposition home or self-care (01) ==
LOC: NCHCN 15:48
PROVIDERS: PCP Nurse Practitioner Family; Visit Provider Nurse Practitioner Family
DX: I82.502 Chronic embolism and thrombosis of unspecified deep veins of left lower extremity (principal); E66.8 Other obesity; Z13.6 Encounter for screening for cardiovascular disorders
CPT/HCPCS: 80048; 80061

== ENCOUNTER → 2023-10-02 00:09 | Outpatient (CLI) | payer MEDICARE, BC, SELFPAY ==
--- NOTE | 2023-10-02 12:30 | DI.US_ITS ---
APPROVED REPORT EXAM: Comprehensive 2D, Doppler, and color-flow Echocardiogram Patient Location: [facility] Specialist: Marguerite Davis RDCS (AE) Indications: Palpitations, SVT Other Information Study Quality: Adequate. Technically limited study due to body habitus. Conclusion Normal left ventricular wall thickness and chamber size. Ejection fraction is 55%. Wall motion as v isualized is grossly normal Normal right ventricular size and function Both atria are normal in size Mild mitral annular calcification There is no hemodynamically significant valvular disease Wall motion Left Ventricle Technically limited parasternal imaging, vertical presentation. The overall left ventricular systolic function appears normal. Regional wall motion is not well visualized but grossly normal. There is no ventricular septal defect visualized. LVEF is 55%. Right Ventricle The right ventricle is normal size. The right ventricular systolic function is normal. Atria The left atrium size is normal. The right atrium size is normal. The interatrial septum is intact wit h no evidence for an atrial septal defect. Aortic Valve Aortic valve is trileaflet. There is no aortic valvular stenosis. No aortic regurgitation is present . Mitral Valve Mild mitral annular calcification. No evidence of mitral valve stenosis. Trace mitral regurgitation. Tricuspid Valve The tricuspid valve is normal in structure. There is no tricuspid valve stenosis. Trace to mild tric uspid regurgitation. Unable to assess PA pressure. Pulmonic Valve The pulmonary valve is normal in structure. There is no pulmonic valvular stenosis. Trace pulmonic re gurgitation. Great Vessels The aortic root is normal in size. The ascending aorta is normal in size. Aortic arch is not well vis ualized. IVC is normal in size and collapses >50% with inspiration. Pericardium There is no pericardial effusion. 2D Dimensions Ao Root d 3.68 cm F: 2.7 - 3.3 Ao Asc Diam d 3.64 cm F: 2.3 - 3.1 M-Mode TAPSE 1.74 cm (M/F) >1.7 Auto EF LV EDV A4C 104.3 mL LV EDV A2C 118.0 mL LV EDV BP 112.7 mL LV ESV A4C 47.7 mL LV ESV A2C 51.6 mL LV ESV BP 50.1 mL LVEF(%) A4C 54.3 % LVEF(%) A2C 56.3 % LVEF(%) BP 55.6 % LV SV A4C 56.6 ml LV SV A2C 66.4 ml LV SV BP 62.6 ml LV CO A4C 3.8 L/min LV CO A2C 4.3 L/min LV CO BP 4.1 L/min HR A4C 67.55 BPM HR A2C 64.52 BPM LV EDV Index (BP) LV Diastology MV E' medial 0.071 (>0.07 m/s) MV E Vmax 0.54 (0.4-1.3 m/s) MV E/E' MED 7.51 (<14) MV A Vmax 0.80 (0.4-1.3 m/s) MV E' lateral 0.097 (>0.1 m/s) E/A Ratio 0.7 MV E/E' LAT 5.51 (<14) MV E' Average 0.084 m/s MV E/E'(average) 6.36 Aortic Valve AoV Vmax 1.31 m/s LVOT Vmax 0.93 m/s AoV Peak Grad 6.9 mmHg LVOT Peak Grad 3.4 mmHg AoV Area (Vmax) 2.19 cm2 LVOT VTI 0.192 m AoV VTI 0.315 m LVOT Mean Grad 2.0 mmHg AoV Mean Landon. 1.00 m/s LVOT SV 59.39 mL AoV Mean Grad 4.4 mmHg LVOT Diam s 1.95 cm AoV Area (VTI) 1.89 cm2 Velocity Ratio 0.71 Mitral Valve MV DT 351 (160-240 msec) MV Vmax TIPS 0.81 m/s MV Mean Grad 1.1 (<2mmHg) MV VTI 0.271 m Pulmonary Valve PV Vmax 0.81 (0.5-1.5 m/s) RVOT Vmax 0.50 m/s PV Peak Grad 2.6 mmHg RVOT Peak Gr. 1.0 mmHg PV Mean Landon 0.60 m/s RVOT VTI 0.112 m PV Mean Grad 1.6 mmHg RVOT Mean Gr. 0.6 mmHg Tricuspid Valve TV S' 0.11 m/s
== END ==
PROVIDERS: PCP Nurse Practitioner Family; Visit Provider Nurse Practitioner Family
DX: I47.10 Supraventricular tachycardia, unspecified (principal)
CPT/HCPCS: 93306

== ENCOUNTER 2023-10-28 11:28 | Outpatient (CLI) | payer MEDICARE, BC, SELFPAY ==
--- NOTE | 2023-10-28 10:45 | DI.RAD_ITS ---
Exam(s) XR SHOULDER RT COMPLETE 2+V EXAM: XR SHOULDER RT COMPLETE 2+V CLINICAL HISTORY: F/U RIGHT RTSA. TECHNIQUE: 2D digital imaging was performed. Two images were obtained. Grashey and Y views were obt ained. COMPARISON: CR XR SHOULDER RT COMPLETE 2+V from 08/26/2023 FINDINGS: BONES: There are stable post operative changes of a right total reverse shoulder replacement present. No fracture or dislocation. JOINTS: The orthopedic hardware is in good position. No evidence of hardware loosening. There are d egenerative changes seen at the acromioclavicular joint. SOFT TISSUE: Normal. IMPRESSION: Stable right total reverse shoulder replacement. DATA REPOSITORY: RADIATION DOSE DELIVERED:
== END 2023-10-28 11:29 | disposition home or self-care (01) ==
LOC: DIORS 11:29
PROVIDERS: PCP Nurse Practitioner Family; Visit Provider Student in an Organized Health Care Education/Training Program
DX: Z47.1 Aftercare following joint replacement surgery (principal); Z96.611 Presence of right artificial shoulder joint
CPT/HCPCS: 99213; 73030

== ENCOUNTER → 2024-04-14 10:13 | Outpatient (BNVA) | payer MEDICARE, BC, SELFPAY | PROVIDERS: PCP Nurse Practitioner Family; Referring Provider Nurse Practitioner Family; Visit Provider Physical Therapy Assistant | DX: Z12.11 Encounter for screening for malignant neoplasm of colon (principal); Z80.0 Family history of malignant neoplasm of digestive organs ==

== ENCOUNTER 2024-07-05 10:55 | Outpatient (CLI) | payer MEDICARE, BC, SELFPAY ==
--- NOTE | 2024-07-05 11:22 | DI.RAD_ITS ---
Exam(s) XR SHOULDER RT COMPLETE 2+V EXAM: XR SHOULDER RT COMPLETE 2+V CLINICAL HISTORY: f/u 1 yr surgery. TECHNIQUE: 2D digital imaging was performed. Three images were obtained. Grashey, Y and axillary vi ews were obtained. COMPARISON: CR XR SHOULDER RT COMPLETE 2+V from 10/28/2023 FINDINGS: BONES: There are stable post operative changes of a right reverse total shoulder arthroplasty present . No fracture or dislocation. JOINTS: The orthopedic hardware is in good position. No evidence of hardware loosening. There are d egenerative changes seen at the acromioclavicular joint. SOFT TISSUE: Normal. IMPRESSION: Stable right reversed total shoulder arthroplasty. DATA REPOSITORY: RADIATION DOSE DELIVERED:
== END 2024-07-05 10:56 | disposition home or self-care (01) ==
LOC: DIORS 10:56
PROVIDERS: PCP Nurse Practitioner Family; Visit Provider Student in an Organized Health Care Education/Training Program
DX: Z96.611 Presence of right artificial shoulder joint (principal); Z47.1 Aftercare following joint replacement surgery
CPT/HCPCS: 99213; 73030

== ENCOUNTER 2024-07-14 01:55 | Outpatient (CLI) | payer MEDICARE, BC, SELFPAY ==
--- NOTE | 2024-07-14 07:15 | DI.CT_ITS ---
Exam(s) CT UPPER EXTREMITY RT WO EXAM: CT UPPER EXTREMITY RT WO CLINICAL HISTORY: PAIN,H/O REVERSE TOTAL REPLACEMENT RT SHOULDER,Z96.611,T84.84XA TECHNIQUE: Imaging Protocol: Axial computed tomography images with coronal and sagittal reformatted images were created and reviewed. IMAR sequence performed. CONTRAST MATERIAL: Noncontrast COMPARISON: CR XR SHOULDER RT COMPLETE 2+V from 07/05/2024 FINDINGS: Bones: There is no evidence of fracture or dislocation. Bony alignment is satisfactory. No cellulitic or osteomyelitic changes are identified. No lytic or sclerotic lesions are identified. Joints: Reverse shoulder prosthesis appears unchanged in alignment. The prosthesis creates artifact. There are no surrounding lucencies. Spurring at the AC joint. Soft Tissues: Visualized portions of the right lung appear clear. No soft tissue hematoma. Muscula r atrophy. IMPRESSION: No findings to suggest loosening of the shoulder prosthesis. RADIATION DOSE DELIVERED: Total DLP DATA REPOSITORY: All CT scans at this facility are submitted to the National Radiology Data Registry (NRDR) Dose Index Registry (DIR) with the [employer] (ACR). RADIATION OPTIMIZATION: All CT scans at this facility use at least one of these dose optimization te chniques: automated exposure control; mA and/or kV adjustment per patient size (includes targeted exa ms where dose is matched to clinical indication); or iterative reconstruction.
== END 2024-07-14 02:15 ==
LOC: DI 01:56
PROVIDERS: PCP Nurse Practitioner Family; Visit Provider Student in an Organized Health Care Education/Training Program
DX: Z96.611 Presence of right artificial shoulder joint (principal); T84.84XA Pain due to internal orthopedic prosthetic devices, implants and grafts, initial encounter
CPT/HCPCS: 73200

== ENCOUNTER 2024-07-14 03:36 | Outpatient (CLI) | payer MEDICARE, BC, SELFPAY ==
[2024-07-14 11:18] LABS: ESR 5 mm/hr (0-30)
[2024-07-14 11:19] LABS: Abs Immature Grans 0.01 10^3/uL (0.0-0.06); Absolute Basophil Count 0.06 10^3/uL (0.0-0.2); Absolute Lymphocyte Count 2.04 10^3/uL (1.2-3.4); Absolute Monocyte Count 0.47 10^3/uL (0.1-0.8); Absolute Neutrophil Count 5.01 10^3/uL (1.2-6.7); Basophils % 0.8 %; Eosinophils % 2.6 %; HCT 41.7 % (36.0-46.0); HGB 13.9 g/dL (11.2-15.7); Immature Grans % 0.1 %; Lymphocytes % 26.2 %; MCH 30.5 pg (27.0-33.0); MCHC 33.3 % (32.0-36.0); MCV 91 fL (80-95); MPV 11.1 fL (8.0-11.0); Neutrophils % 64.3 %; Platelet Count 251 10^3/uL (130-400); RBC 4.56 10^6/uL (3.93-5.22); RDW 12.7 % (11.7-14.6); RDW-SD 42.3 fL; WBC 7.79 10^3/uL (4.4-10.8)
[2024-07-14 11:39] LABS: C-Reactive Protein < 0.50 mg/dL (<or=0.5)
== END 2024-07-14 03:37 | disposition home or self-care (01) ==
LOC: LBO 03:38
PROVIDERS: PCP Nurse Practitioner Family; Visit Provider Student in an Organized Health Care Education/Training Program
DX: T84.84XA Pain due to internal orthopedic prosthetic devices, implants and grafts, initial encounter (principal)
CPT/HCPCS: 36415; 85652; 73200; 85025; 86140

== ENCOUNTER → 2024-07-20 11:13 | Outpatient (BNVA) | payer MEDICARE, BC, SELFPAY | PROVIDERS: PCP Nurse Practitioner Family; Referring Provider Nurse Practitioner Family; Visit Provider Student in an Organized Health Care Education/Training Program | DX: Z96.611 Presence of right artificial shoulder joint; M77.8 Other enthesopathies, not elsewhere classified; M25.511 Pain in right shoulder | CPT/HCPCS: 20610; 99214 ==

== ENCOUNTER → 2024-07-27 09:09 | Outpatient (BNVA) | payer MEDICARE, BC, SELFPAY | PROVIDERS: PCP Nurse Practitioner Family; Referring Provider Nurse Practitioner Family; Visit Provider Student in an Organized Health Care Education/Training Program | DX: Z96.611 Presence of right artificial shoulder joint (principal); M77.8 Other enthesopathies, not elsewhere classified | CPT/HCPCS: 20550; J1010 ==

== ENCOUNTER 2024-09-13 17:31 | Outpatient (REF) | payer MEDICARE, BC, SELFPAY ==
[2024-09-13 16:45] LABS: Anion Gap 11.3 mmol/L (3-11); BUN 16 mg/dL (7-18); CO2 24.7 mmol/L (21.0-32.0); Calcium 9.5 mg/dL (8.5-10.1); Chloride 102 mmol/L (98-107); Estimated GFR 76.79 (mL/min/1.73m2); Glucose 84 mg/dL (74-106); Magnesium 1.9 mg/dL (1.8-2.4); Potassium 3.8 mmol/L (3.5-5.1); Sodium 138 mmol/L (136-145); Vitamin B12 928 pg/mL (193-986)
[2024-09-13 18:16] LABS: Hemoglobin A1C 5.2 % (<5.7)
== END 2024-09-13 17:32 | disposition home or self-care (01) ==
LOC: NCHCN 17:31
PROVIDERS: PCP Nurse Practitioner Family; Visit Provider Nurse Practitioner Family
DX: K29.70 Gastritis, unspecified, without bleeding (principal); E66.9 Obesity, unspecified
CPT/HCPCS: 80048; 82607; 83036; 83735

== ENCOUNTER 2024-10-28 06:20 | Day surgery (SDC) | payer MEDICARE, BC, SELFPAY ==
--- NOTE | 2024-10-28 06:14 | W.ANESPRE ---
General Info Date of Service Date Performed: 10/28/24 Height: 5 ft 8 in Weight: 72.575 kg Body Mass Index (BMI): 24.3 Surgical Procedure: Operation Date: 10/28/24 09:10 Proposed Procedure Side Surgeon p Cataract Extraction with IOL Implant Left Frandy Hinton MD Meds Allergies and Home Medications Allergies Allergy/AdvReac Type Severity Reaction Status Date / Time hydromorphone HCl (From Allergy Severe CHEST PAIN Verified 10/28/24 06:59 Dilaudid) Penicillins Allergy Severe Anaphylaxsi Verified 10/28/24 06:59 s shellfish derived Allergy Severe GI upset, Verified 10/28/24 06:59 severe cephalexin Allergy Intermediate ITCHING Verified 10/28/24 06:59 SWELLING latex AdvReac Intermediate Itching Verified 10/28/24 06:59 DEET AdvReac Intermediate Skin Rash Uncoded 10/28/24 06:59 Home Medication ?Medication ?Instructions ?Recorded loratadine 10 mg tablet 10 mg PO PRN PRN 08/19/17 acetaminophen 500 mg tablet (Mapap 1,000 mg (2 x 500 mg) PO Q8H PRN 08/27/17 Extra Strength) PRN #100 tabs rivaroxaban 20 mg tablet (Xarelto) 10 mg PO DAILY 07/17/22 meclizine 12.5 mg tablet 12.5 mg PO TID PRN 08/27/22 cholecalciferol (vitamin D3) 25 25 mcg PO DAILY 09/04/22 mcg (1,000 unit) tablet multivitamin 1 tab PO DAILY 04/06/24 bisacodyl 5 mg tablet,delayed 5 mg PO ONCE #4 tabs 04/14/24 release (Dulcolax (bisacodyl)) polyethylene glycol 3350 17 17 g PO ONCE #238 grams 04/14/24 gram/dose oral powder Current Visit Medications: Current Medications Generic Name Dose Route Start Last Admin Trade Name Freq PRN Reason Stop Dose Admin Acetaminophen 1,000 mg 10/28/24 06:00 Acetaminophen 500 Mg Tab PO 11/27/24 05:59 Q4H PRN PRN Balanced Salt Solution 500 ml 10/28/24 06:00 Balanced Salt Soln.-Plus 500 Ml Bag OP 11/27/24 05:59 DIRECTED [facility] Miscellaneous Medication 0 ml 08/15/25 06:00 Prednisolone 1%, Moxifloxacin 0.5%, Bromfenac 0.09% 5.6ml Btl OS 11/27/24 05:59 DIRECTED [facility] Miscellaneous Medication 0 ml 10/28/24 06:00 Tropicam./Phenyleph. 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 Acute M76.32 Trochanteric bursitis, left hip Acute M70.62 Osteoarthritis of left hip Acute M16.12 Osteoarthritis of left sacroiliac joint Acute M46.1 History of reverse total replacement of right shoulder joint Acute 07/03/23 Z96.611 Cat scratch of forearm Acute S50.819A, W55.03XA Tendonitis of long head of biceps brachii of right shoulder Acute M75.21 Rotator cuff tear, right Acute M75.101 Arthritis of right glenohumeral joint Acute M19.011 Sensorineural hearing loss (SNHL) of both ears Acute H90.3 Benign positional vertigo Acute H81.10 Obesity Chronic E66.9 Gastritis Acute K29.70 Chest pain of unknown etiology Acute R07.9 Palpitations Acute R00.2 Lesion of right ear Acute H93.91 Nasal septal perforation Acute J34.89 Cystocele with prolapse Acute N81.4 Erythema chronica migrans, secondary Acute A69.20 Thrombophlebitis Acute I80.9 SVT (supraventricular tachycardia) Chronic I47.1 Osteopenia Acute M85.80 Depression Chronic F32.9 Anxiety Chronic F41.9 History of mastectomy Chronic Z90.10 History of total left knee replacement (TKR) Chronic Z96.652 History of total right knee replacement (TKR) Chronic Z96.651 IT band syndrome Acute M76.30 Cervical stenosis of spine Acute 03/31/17 M48.02 Carcinoma of right breast Acute C50.911 History of Surgical Procedure Chronic Z98.89 Medical History Medical History Cervical stenosis of spine Lyme disease Chronic pain DVT of leg (deep venous thrombosis) LEFT LEG PER pcp PROB LIST rh Vertigo Breast cancer Surgical History Surgical History Hx of shoulder replacement H/O total mastectomy of right breast (~08/30/13) Previous back surgery disectomy 1983 History of bilateral knee replacement Fracture, Open Treatment (06/30/14) 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 Please see original notes in EMR for more complete details. EKG Summary: 09/04/22 Conclusion Sinus rhythm...normal P axis, V-rate 50- 99 Left anterior fascicular block Early transition Stress Test Summary: 04/01/17 Impressions: Normal perfusion by [id number] Sestamibi Imaging. Summary: 1. Myocardial perfusion imaging: No myocardial perfusion defects noted. 2. The calculated left ventricular ejection fraction after stress: 58%. No left ventricular regional motion abnormality. Echocardiogram Summary: 08/21/22 Conclusion Normal left ventricular wall thickness and chamber size. Ejection fraction is 55%. Wall motion is normal Normal right ventricular size and systolic function Both atria are normal in size There is no structural or hemodynamically significant valvular disease Mildly dilated aortic root and ascending aorta Anesthesia Assessment and Plan Anesthesia History Personal History: No History of Anesthesia Complications Family History: No Family History of Anesthesia Complications Exercise Tolerance Exercise Tolerance: Metabolic Equivalents<4 Cardiac & Pulmonary Exam Cardiac Exam: Normal S1/S2 Heart Sounds Pulmonary Exam: Clear Bilateral Breath Sounds Implantable Cardiac Device Does patient have a Pacemaker or an ICD?: No Airway Exam Known Difficult Airway: No Mallampati Class: 3 Mouth Opening: Normal (> 3cm) Thyromental Distance: Less than 3 cm Neck Range of Motion: Full ROM Neck Circumference: Normal Teeth Condition: Loose or Chipped ASA Classification ASA Score: ASA 3 Emergency Case?: No NPO Status NPO Status: NPO Clears >2 hours, Solids >8 hours Anesthesia Plan Resuscitation Status: Full Code Anesthesia Technique: MAC Anesthesia Airway Planned: Natural Airway Monitors Used: Standard Monitors Preoperative Comments:: 74 yo female for cataract removal. Sig PMHx: SVT, DVT, cervical stenosis (very limited), breast CA, depression/anxiety. former smoker. ECHO: LVEF 55%, no sig valve issues. Previous Anes: - total shoulder, glide 3 grade 2a. easy mask with OPA. - TKA, spinal, prop sedation, no issues.
[2024-10-28 06:41] VITALS: BP 112/68; PULSE 51; RESP 16; TEMP 36.4; O2SAT 100
[2024-10-28 07:03] VITALS: BMI 24.3
[2024-10-28] MEDS: Tropicam./Phenyleph. (1/2.5%) 5 ML BTL OS ×3 (07:03→07:13)
[2024-10-28] MEDS: Tetracaine 0.5% 4 ML BTL (08:56)
[2024-10-28] MEDS: Povidone-Iodine Ophth 30 ML BTL (08:58)
[2024-10-28] MEDS: Phenylephrine/Lidocaine (15/10) MG/ML 1 ML VIAL (09:04)
[2024-10-28] MEDS: Duovisc Viscoelastic System EACH 1 EACH (09:04)
[2024-10-28] MEDS: Lidocaine 1% Pres-Free 5 ML VIAL (09:04)
[2024-10-28] MEDS: Balanced Salt Soln.-PLUS 500 ML BAG OP (09:05)
[2024-10-28] MEDS: Prednisolone 1%, Moxifloxacin 0.5%, Bromfenac 0.09% 5.6ML BTL 5.6 ML (09:16)
[2024-10-28] MEDS: Moxifloxacin-PF 1 MG/ML VIAL (09:16)
[2024-10-28 09:23] VITALS: BP 92/60; PULSE 61; RESP 16; TEMP 36.4; O2SAT 100
--- NOTE | 2024-10-28 09:24 | W.PM.DSUDISC ---
Date of service: 10/28/24 Discharge Plan Disposition Patient Disposition: Home Discharge Details Attending Provider: Frandy Hinton Primary Care Provider: Laura De La Cruz Home Meds and New Rx's Prescriptions: No Action meclizine 12.5 mg tablet 12.5 mg PO TID PRN cholecalciferol (vitamin D3) 25 mcg (1,000 unit) tablet 25 mcg PO DAILY bisacodyl [Dulcolax (bisacodyl)] 5 mg tablet,delayed release (DR/EC) 5 mg PO ONCE Qty: 4 0RF Rx Instructions: Take per colonoscopy instructions provided by ordering providers office polyethylene glycol 3350 17 gram/dose powder 17 g PO ONCE Qty: 238 0RF Rx Instructions: Take per colonoscopy instructions provided by ordering providers office Xarelto 20 mg tablet 10 mg PO DAILY Patient Comments: 07/16/22 per PCP med list RH Rx Instructions: must administer with evening meal multivitamin Tablet 1 tab PO DAILY loratadine 10 MG tablet 10 mg PO PRN PRN acetaminophen [Mapap Extra Strength] 500 MG tablet 1,000 mg PO Q8H PRN PRNQty: 100 3RF Discharge Instructions Stand Alone Forms: DSU Post-Op Cataract, Nalini Martin ([facility]U) Discharge Orders Discharge Orders: Discharge Order (Routine); Ordered 10/28/24 Ordered By: Frandy Hinton DS: Diagnosis Discharge Diagnosis (1) Cortical age-related cataract, left eye: Status: Resolved (2) Nuclear age-related cataract, left eye: Status: Resolved
--- NOTE | 2024-10-28 09:25 | ROE_ITS ---
Operative Note Operative Note PRE-OP DIAGNOSIS: Nuclear/cortical cataract, left eye POST-OP DIAGNOSIS: same PROCEDURE: Cataract extraction using phacoemulsification with intraocular lens implant, left eye SURGEON: Frandy Hinton ANESTHESIA TYPE: Local By Surgeon and MAC Refer to Anesthesia Record PATHOLOGY: none sent COMPLICATIONS: None Patient was transported to: same day Patient's condition: stable Implants: Demetrius Clareon [id number] Indications: Progressive decreased vision due to cataract, left eye Procedure Description: CATARACT SURGERY OPERATIVE REPORT PREOPERATIVE DIAGNOSIS: Nuclear/cortical cataract, left eye POSTOPERATIVE DIAGNOSIS: Same OPERATION: Cataract extraction using phacoemulsification with posterior chamber intraocular lens implant, left eye. IOL: IOL Auto Body Repair Technician/Model: Demetrius Clareon [id number] IOL Power: + 19.0 diopters IOL Serial Number: [id number] Optic Diameter: 6.0mm Haptic/Overall Diameter: 13.0mm PHACO INFO: Demetrius Centurion Vision System with OZil and Active Fluidics Cumulative Dispersed Energy (CDE): 6.23 seconds SURGEON: Frandy Hinton MD, ERIK ANESTHESIA: Monitored Anesthesia Care (MAC), with local sub-tenon's anesthetic infiltration COMPLICATIONS: None SPECIMENS: None INDICATIONS FOR PROCEDURE: The patient is a 74-year-old lady with history of diminished visual acuity in her left eye secondary to the development of nuclear/cortical cataract. She is significantly symptomatic that she desires cataract surgery in attempt to improve and maximize her vision. The option of cataract surgery was offered to the patient and she wished to proceed. See office notes for detailed information. PROCEDURE: The correct surgical eye was identified and marked as the left eye and the pupil was dilated in the preoperative area using mydriatics and cycloplegics. The dilated pupil size was 7.0 mm. The patient elected to proceed without oral sedation. The patient was brought to the operating room where cardiopulmonary monitoring was instituted and surgical time-out was performed, confirming the correct operative eye and IOL power. Topical anesthesia was administered and ophthalmic povidone-iodine 5% was instilled into the conjunctival fornices. The silva-ocular area was prepped with Betadine 10% solution and draped in the usual sterile fashion for intraocular surgery, including an aperture drape. A Tegaderm transparent film dressing was cut in half and used to cover the lashes and lid margins. Care was taken to sequester the lashes and lid margins under the Tegaderm dressing. A lid speculum was placed between the lids of the operative eye and the Demetrius LuxOR Revalia operating microscope was maneuvered into position. Demi scissors were then used to make a conjunctival buttonhole approximately 6mm posterior to the limbus in the inferonasal quadrant. Blunt dissection was carried out to expose bare sclera, and a blunt-tipped sub-tenon?s anesthesia cannula was introduced and passed posteriorly along the globe where non- preserved plain lidocaine was injected into posterior sub-Tenon?s space. A sideport knife was used to make a paracentesis port. Intraocular phenylephrine/lidocaine was injected into the anterior chamber. The anterior chamber was then filled with viscoelastic. A keratome knife was used construct a two-plane clear corneal tunnel extending 2.0mm into clear cornea. A flap was raised on the anterior capsule and capsulorhexis forceps were used to complete a continuous curvilinear capsulorhexis of 5.0 mm. Balanced salt solution was then used to perform cortical cleaving hydrodissection and nuclear hydrodelineation until the lens could be freely rotated within the capsular bag. The lens nucleus was then disassembled and removed within the capsular bag and iris plane using phacoemulsification. Residual cortical material was removed using the irrigation/aspiration handpiece. The posterior capsule was carefully polished to remove as much residual lens epithelial cells as safely possible. The capsular bag was then inflated and the anterior chamber deepened with viscoelastic. The lens implant described above was inserted into the capsular bag using the Demetrius Autonome Injector. A Kuglen hook was used to dial the IOL into position. Residual viscoelastic was then removed first from posterior to the IOL, then from the anterior chamber using the I/A handpiece. The lens implant was noted to center nicely within the capsular bag. The incisions were stromally hydrated, and the anterior chamber was reformed using BSS. Then 0.5cc of moxifloxacin 1.0mg/ml were injected into the capsular bag and anterior chamber. The incisions were checked with a Weck spear and found to be secure. Several drops of ophthalmic povidone-iodine 5% were then applied to the eye followed by two drops of combination steroid/NSAID/antibiotic solution. The drapes were removed and a clear plastic protective eye shield was placed over the eye. The patient was then returned to Same Day Surgery in stable condition. Date of Procedure: 10/28/24
--- NOTE | 2024-10-28 09:31 | W.ANESPOSTOP ---
Postoperative Evaluation Date, Time and Location Date Performed: 10/28/24 Time Performed: 09:31 Patient Location: Day Surgery Unit Vital Signs Most Recent Imported Vital Signs: Most Recent Vital Signs Temp Pulse Resp BP Pulse Ox 36.4 C L 61 16 92/60 L 100 10/28/24 09:23 10/28/24 09:23 10/28/24 09:23 10/28/24 09:23 10/28/24 09:23 Pain Score Most Recent Pain Score: Most Recent Pain Score Pain Level 0 10/28/24 09:23 Assessment Mental Status: Awake (Alert & Oriented to Patient Baseline) Airway and Respiratory Function: Patent airway with normal (patient baseline) respiratory exam Cardiovascular Function: Hemodynamically Stable Hydration Status: Adequately Hydrated Nausea & Vomiting: No Nausea or Vomiting Pain: Pt. Denies Any Pain Peripheral Nerve Block: Patient did not receive a nerve block
== END 2024-10-28 09:54 | disposition home or self-care (01) ==
LOC: SUR 06:21
PROVIDERS: PCP Nurse Practitioner Family; Visit Provider Ophthalmology
PROC: (CPT 66984; principal; 2024-10-28 09:00)
DX: H25.12 Age-related nuclear cataract, left eye (principal); H25.012 Cortical age-related cataract, left eye
CPT/HCPCS: 66984; 00123; V2632; J2003

== ENCOUNTER 2024-11-11 08:51 | Day surgery (SDC) | payer MEDICARE, BC, SELFPAY ==
[2024-11-11 09:13] VITALS: BP 118/70; PULSE 65; RESP 16; TEMP 36.8; O2SAT 100
[2024-11-11] MEDS: Tropicam./Phenyleph. (1/2.5%) 5 ML BTL OD ×3 (09:25→09:40)
--- NOTE | 2024-11-11 10:03 | W.ANESPRE ---
General Info Date of Service Date Performed: 11/11/24 Height: 5 ft 8 in Weight: 74.5 kg Body Mass Index (BMI): 25.0 Surgical Procedure: Operation Date: 11/11/24 11:40 Proposed Procedure Side Surgeon p Cataract Extraction with IOL Implant Right Frandy Hinton MD Meds Allergies and Home Medications Allergies Allergy/AdvReac Type Severity Reaction Status Date / Time hydromorphone HCl (From Allergy Severe CHEST PAIN Verified 11/09/24 14:14 Dilaudid) Penicillins Allergy Severe Anaphylaxsi Verified 11/09/24 14:14 s shellfish derived Allergy Severe GI upset, Verified 11/09/24 14:14 severe cephalexin Allergy Intermediate ITCHING Verified 11/09/24 14:14 SWELLING latex AdvReac Intermediate Itching Verified 11/09/24 14:14 DEET AdvReac Intermediate Skin Rash Uncoded 11/09/24 14:14 Home Medication ?Medication ?Instructions ?Recorded loratadine 10 mg tablet 10 mg PO PRN PRN 08/19/17 acetaminophen 500 mg tablet (Mapap 1,000 mg (2 x 500 mg) PO Q8H PRN 08/27/17 Extra Strength) PRN #100 tabs rivaroxaban 20 mg tablet (Xarelto) 10 mg PO DAILY 07/17/22 meclizine 12.5 mg tablet 12.5 mg PO TID PRN 08/27/22 cholecalciferol (vitamin D3) 25 25 mcg PO DAILY 09/04/22 mcg (1,000 unit) tablet multivitamin 1 tab PO DAILY 04/06/24 bisacodyl 5 mg tablet,delayed 5 mg PO ONCE #4 tabs 04/14/24 release (Dulcolax (bisacodyl)) polyethylene glycol 3350 17 17 g PO ONCE #238 grams 04/14/24 gram/dose oral powder Current Visit Medications: Current Medications Generic Name Dose Route Start Last Admin Trade Name Freq PRN Reason Stop Dose Admin Acetaminophen 1,000 mg 11/11/24 06:00 Acetaminophen 500 Mg Tab PO 12/11/24 05:59 Q4H PRN PRN Balanced Salt Solution 500 ml 11/11/24 06:00 Balanced Salt Soln.-Plus 500 Ml Bag OP 12/11/24 05:59 DIRECTED [facility] Miscellaneous Medication 0 ml 11/11/24 06:00 Prednisolone 1%, Moxifloxacin 0.5%, Bromfenac 0.09% 5.6ml Btl OD 12/11/24 05:59 DIRECTED [facility] Miscellaneous Medication 0 ml 11/11/24 06:00 11/11/24 09:40 Tropicam./Phenyleph. 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 Acute M76.32 Trochanteric bursitis, left hip Acute M70.62 Osteoarthritis of left hip Acute M16.12 Osteoarthritis of left sacroiliac joint Acute M46.1 History of reverse total replacement of right shoulder joint Acute 07/03/23 Z96.611 Cat scratch of forearm Acute S50.819A, W55.03XA Tendonitis of long head of biceps brachii of right shoulder Acute M75.21 Rotator cuff tear, right Acute M75.101 Arthritis of right glenohumeral joint Acute M19.011 Sensorineural hearing loss (SNHL) of both ears Acute H90.3 Benign positional vertigo Acute H81.10 Obesity Chronic E66.9 Gastritis Acute K29.70 Chest pain of unknown etiology Acute R07.9 Palpitations Acute R00.2 Lesion of right ear Acute H93.91 Nasal septal perforation Acute J34.89 Cystocele with prolapse Acute N81.4 Erythema chronica migrans, secondary Acute A69.20 Thrombophlebitis Acute I80.9 SVT (supraventricular tachycardia) Chronic I47.1 Osteopenia Acute M85.80 Depression Chronic F32.9 Anxiety Chronic F41.9 History of mastectomy Chronic Z90.10 History of total left knee replacement (TKR) Chronic Z96.652 History of total right knee replacement (TKR) Chronic Z96.651 IT band syndrome Acute M76.30 Cervical stenosis of spine Acute 03/31/17 M48.02 Carcinoma of right breast Acute C50.911 History of Surgical Procedure Chronic Z98.89 Medical History Medical History Cervical stenosis of spine Lyme disease Chronic pain DVT of leg (deep venous thrombosis) LEFT LEG PER pcp PROB LIST rh Vertigo Breast cancer Surgical History Surgical History Hx of shoulder replacement H/O total mastectomy of right breast (~08/30/13) Previous back surgery disectomy 1983 History of bilateral knee replacement Fracture, Open Treatment (06/30/14) 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 Please see original notes in EMR for more complete details. EKG Summary: 09/04/22 Conclusion Sinus rhythm...normal P axis, V-rate 50- 99 Left anterior fascicular block Early transition Stress Test Summary: 04/01/17 Impressions: Normal perfusion by [id number] Sestamibi Imaging. Summary: 1. Myocardial perfusion imaging: No myocardial perfusion defects noted. 2. The calculated left ventricular ejection fraction after stress: 58%. No left ventricular regional motion abnormality. Echocardiogram Summary: 08/21/22 Conclusion Normal left ventricular wall thickness and chamber size. Ejection fraction is 55%. Wall motion is normal Normal right ventricular size and systolic function Both atria are normal in size There is no structural or hemodynamically significant valvular disease Mildly dilated aortic root and ascending aorta Anesthesia Assessment and Plan Anesthesia History Personal History: No History of Anesthesia Complications Family History: No Family History of Anesthesia Complications Exercise Tolerance Exercise Tolerance: Metabolic Equivalents<4 Cardiac & Pulmonary Exam Cardiac Exam: Normal S1/S2 Heart Sounds Pulmonary Exam: Clear Bilateral Breath Sounds Implantable Cardiac Device Does patient have a Pacemaker or an ICD?: No Airway Exam Known Difficult Airway: No Mallampati Class: 3 Mouth Opening: Normal (> 3cm) Thyromental Distance: Less than 3 cm Neck Range of Motion: Full ROM Neck Circumference: Normal Teeth Condition: Loose or Chipped ASA Classification ASA Score: ASA 3 Emergency Case?: No NPO Status NPO Status: NPO Clears >2 hours, Solids >8 hours Anesthesia Plan Resuscitation Status: Full Code Anesthesia Technique: MAC Anesthesia Airway Planned: Natural Airway Monitors Used: Standard Monitors
[2024-11-11 10:26] VITALS: BMI 25.0
[2024-11-11] MEDS: Duovisc Viscoelastic System EACH 1 EACH (10:44)
[2024-11-11] MEDS: Moxifloxacin-PF 1 MG/ML VIAL (10:45)
[2024-11-11] MEDS: Lidocaine 1% Pres-Free 5 ML VIAL (10:45)
[2024-11-11] MEDS: Phenylephrine/Lidocaine (15/10) MG/ML 1 ML VIAL (10:46)
[2024-11-11] MEDS: Povidone-Iodine Ophth 30 ML BTL (10:47)
[2024-11-11] MEDS: Prednisolone 1%, Moxifloxacin 0.5%, Bromfenac 0.09% 5.6ML BTL OD (10:47)
[2024-11-11] MEDS: Balanced Salt Soln.-PLUS 500 ML BAG OP (10:47)
[2024-11-11] MEDS: Tetracaine 0.5% 4 ML BTL OD (10:48)
[2024-11-11 11:02] VITALS: BP 108/74; PULSE 56; RESP 16; TEMP 36.8; O2SAT 100
--- NOTE | 2024-11-11 11:02 | W.PM.DSUDISC ---
Date of service: 11/11/24 Discharge Plan Disposition Patient Disposition: Home Discharge Details Attending Provider: Frandy Hinton Primary Care Provider: Laura De La Cruz Home Meds and New Rx's Prescriptions: No Action meclizine 12.5 mg tablet 12.5 mg PO TID PRN cholecalciferol (vitamin D3) 25 mcg (1,000 unit) tablet 25 mcg PO DAILY bisacodyl [Dulcolax (bisacodyl)] 5 mg tablet,delayed release (DR/EC) 5 mg PO ONCE Qty: 4 0RF Rx Instructions: Take per colonoscopy instructions provided by ordering providers office polyethylene glycol 3350 17 gram/dose powder 17 g PO ONCE Qty: 238 0RF Rx Instructions: Take per colonoscopy instructions provided by ordering providers office Xarelto 20 mg tablet 10 mg PO DAILY Patient Comments: 07/16/22 per PCP med list RH Rx Instructions: must administer with evening meal multivitamin Tablet 1 tab PO DAILY loratadine 10 MG tablet 10 mg PO PRN PRN acetaminophen [Mapap Extra Strength] 500 MG tablet 1,000 mg PO Q8H PRN PRNQty: 100 3RF Discharge Instructions Stand Alone Forms: [facility] Post-Op Cataract, Nalini Martin ([facility]) Discharge Orders Discharge Orders: Discharge Order (Routine); Ordered 11/11/24 Ordered By: Frandy Hinton DS: Diagnosis Discharge Diagnosis (1) Cortical age-related cataract, right eye: Status: Resolved
--- NOTE | 2024-11-11 11:03 | ROE_ITS ---
Operative Note Operative Note PRE-OP DIAGNOSIS: Nuclear/cortical cataract, right eye POST-OP DIAGNOSIS: same PROCEDURE: Cataract extraction using phacoemulsification with intraocular lens implant, right eye SURGEON: Frandy Hinton ANESTHESIA TYPE: Local By Surgeon and MAC Refer to Anesthesia Record ESTIMATED BLOOD LOSS: 0 PATHOLOGY: none sent COMPLICATIONS: None Patient was transported to: same day Patient's condition: stable Implants: Demetrius Clareon [id number] Indications: Progressive decreased vision due to cataract, right eye Procedure Description: CATARACT SURGERY OPERATIVE REPORT PREOPERATIVE DIAGNOSIS: Nuclear/cortical cataract, right eye POSTOPERATIVE DIAGNOSIS: Same OPERATION: Cataract extraction using phacoemulsification with posterior chamber intraocular lens implant, right eye. IOL: IOL Sales Development Consultant/Model: Demetrius Clareon [id number] IOL Power: + 18.5 diopters IOL Serial Number: [id number] Optic Diameter: 6.0mm Haptic/Overall Diameter: 13.0mm PHACO INFO: Demetrius Centurion Vision System with OZil and Active Fluidics Cumulative Dispersed Energy (CDE): 5.66 seconds SURGEON: Frandy Hinton MD, ERIK ANESTHESIA: Monitored Anesthesia Care (MAC), with local sub-tenon's anesthetic infiltration COMPLICATIONS: None SPECIMENS: None INDICATIONS FOR PROCEDURE: The patient is a 74-year-old lady with history of diminished visual acuity in both eyes secondary to the development of bilateral nuclear/cortical cataract. She has already undergone cataract surgery in the left eye and is doing well postoperatively. She now presents for cataract surgery in the right eye. See office notes for detailed information. PROCEDURE: The correct surgical eye was identified and marked as the right eye and the pupil was dilated in the preoperative area using mydriatics and cycloplegics. The dilated pupil size was 6.0 mm. The patient elected to proceed without oral sedation. The patient was brought to the operating room where cardiopulmonary monitoring was instituted and surgical time-out was performed, confirming the correct operative eye and IOL power. Topical anesthesia was administered and ophthalmic povidone-iodine 5% was instilled into the conjunctival fornices. The silva-ocular area was prepped with Betadine 10% solution and draped in the usual sterile fashion for intraocular surgery, including an aperture drape. A Tegaderm transparent film dressing was cut in half and used to cover the lashes and lid margins. Care was taken to sequester the lashes and lid margins under the Tegaderm dressing. A lid speculum was placed between the lids of the operative eye and the Demetrius LuxOR Revalia operating microscope was maneuvered into position. Demi scissors were then used to make a conjunctival buttonhole approximately 6mm posterior to the limbus in the inferonasal quadrant. Blunt dissection was carried out to expose bare sclera, and a blunt-tipped sub-tenon?s anesthesia cannula was introduced and passed posteriorly along the globe where non- preserved plain lidocaine was injected into posterior sub-Tenon?s space. A sideport knife was used to make a paracentesis port. Intraocular phenylephrine/lidocaine was injected into the anterior chamber. The anterior chamber was then filled with viscoelastic. A keratome knife was used to construct a two--plane clear corneal tunnel extending 2.0mm into clear cornea. A flap was raised on the anterior capsule and capsulorhexis forceps were used to complete a continuous curvilinear capsulorhexis of 5.0 mm. Balanced salt solution was then used to perform cortical cleaving hydrodissection and nuclear hydrodelineation until the lens could be freely rotated within the capsular bag. The lens nucleus was then disassembled and removed within the capsular bag and iris plane using phacoemulsification. Residual cortical material was removed using the I/A handpiece. The posterior capsule was carefully polished to remove as much residual lens epithelial cells as safely possible. The capsular bag was then inflated and the anterior chamber deepened with cohesive viscoelastic. The lens implant described above was inserted into the capsular bag using the Demetrius Autonome Injector. A Kuglen hook was used to dial the IOL into position. Residual viscoelastic was then removed first from posterior to the IOL, then from the anterior chamber using the I/A handpiece. The lens implant was noted to center nicely within the capsular bag. The incisions were stromally hydrated, and the anterior chamber was reformed using BSS. Then 0.5cc of moxifloxacin 1.0mg/ml were injected into the capsular bag and anterior chamber. The incisions were checked with a Weck spear and found to be secure. Several drops of ophthalmic povidone-iodine 5% were then applied to the eye followed by two drops of combination steroid/NSAID/antibiotic solution. The drapes were removed and a clear plastic protective eye shield was placed over the eye. The patient was then returned to Same Day Surgery in stable condition. Date of Procedure: 11/11/24
--- NOTE | 2024-11-11 11:18 | W.ANESPOSTOP ---
Postoperative Evaluation Date, Time and Location Date Performed: 11/11/24 Time Performed: 11:10 Patient Location: Day Surgery Unit Vital Signs Most Recent Imported Vital Signs: Most Recent Vital Signs Temp Pulse Resp BP Pulse Ox 36.8 C 56 L 16 108/74 100 11/11/24 11:02 11/11/24 11:02 11/11/24 11:02 11/11/24 11:02 11/11/24 11:02 Pain Score Most Recent Pain Score: Most Recent Pain Score Pain Level 0 11/11/24 11:02 Assessment Mental Status: Awake (Alert & Oriented to Patient Baseline) Airway and Respiratory Function: Patent airway with normal (patient baseline) respiratory exam Cardiovascular Function: Hemodynamically Stable Hydration Status: Adequately Hydrated Nausea & Vomiting: No Nausea or Vomiting Pain: Pt. Denies Any Pain Peripheral Nerve Block: Patient did not receive a nerve block
== END 2024-11-11 11:32 | disposition home or self-care (01) ==
LOC: SUR 08:51
PROVIDERS: PCP Nurse Practitioner Family; Visit Provider Ophthalmology
PROC: (CPT 66984; principal; 2024-11-11 11:30)
DX: H25.011 Cortical age-related cataract, right eye (principal); Z98.42 Cataract extraction status, left eye
CPT/HCPCS: 66984; 00123; V2632; J2003